=== PATIENT | female | born 1975 | race Caucasian/White ===

== ENCOUNTER 2020-06-27 06:04 | Outpatient (REF) | payer MEDICARE, MEDICAID, SELFPAY ==
[2020-06-27 12:04] LABS: Alanine Aminotransferase 11 U/L (0-31); Alkaline Phosphatase 82 U/L (39-117); Anion Gap 12 (12-20); Aspartate Amino Transferase 12 U/L (5-31); Bilirubin Total 0.4 mg/dL (0.0-1.0); Blood Urea Nitrogen 11 mg/dL (9-16); Calcium 8.9 mg/dL (8.4-10.2); Carbon Dioxide 32 mmol/L (22-29); Chloride 102 mmol/L (96-108); Cholesterol 239 mg/dL; Estimated Glomerular Filt Rate > 60; Glucose Fasting 94 mg/dL (60-99); HDL Cholesterol 46 mg/dL; LDL Cholesterol Calculated 153 mg/dl; Potassium 4.7 mmol/l (3.3-5.1); Sodium 141 mmol/L (135-145); Total Protein 7.3 g/dL (6.5-8.0); Triglycerides 201 mg/dL
== END 2020-06-27 06:05 | disposition home or self-care (01) ==
LOC: HO.HMGCLDS 06:04
PROVIDERS: PCP Internal Medicine; Visit Provider Internal Medicine
DX: E03.9 Hypothyroidism, unspecified (principal); E78.9 Disorder of lipoprotein metabolism, unspecified; E66.01 Morbid (severe) obesity due to excess calories; Z68.42 Body mass index [BMI] 45.0-49.9, adult
CPT/HCPCS: 80053; 80061

== ENCOUNTER 2021-01-03 12:48 | Outpatient (REF) | payer MEDICARE, MEDICAID, SELFPAY ==
--- NOTE | ~2021-01-03 | MM_ITS ---
EXAMINATION: MM SCREENING DIGITAL BREAST TOMOSYNTHESIS, BILATERAL CLINICAL INFORMATION: Screening. Asymptomatic. The lifetime risk of breast cancer based on the Tyrer-Cuzick Model is 9%. COMPARISON: Mammography: 12/15/2018; remote 05/19/2012 (CC views). TECHNIQUE: Digital breast tomosynthesis is performed in both the craniocaudal and mediolateral oblique views along with computer-aided detection (CAD). Synthesized 2D images are generated from the tomosynthesis. FINDINGS: There are scattered areas of fibroglandular density (ACR BI-RADS breast composition Category b). There are no significant masses, abnormal calcifications, or other abnormalities. The axilla and skin contours are unremarkable. No significant changes. MM/MM tomosynthesis screening BI IMPRESSION: No mammographic evidence of malignancy. ASSESSMENT: BI-RADS 1: Negative RECOMMENDATION: Routine annual mammography screening. This patient's information was entered into a reminder system with a target due date for their next mammogram.
== END 2021-01-03 12:49 | disposition home or self-care (01) ==
LOC: HO.MAMMO 12:48
PROVIDERS: Visit Provider Internal Medicine
DX: Z12.31 Encounter for screening mammogram for malignant neoplasm of breast (principal)
CPT/HCPCS: 77063; 77067

== ENCOUNTER 2021-02-15 12:50 | Outpatient (REF) | payer MEDICARE, MEDICAID, SELFPAY ==
--- NOTE | ~2021-02-15 | XR_ITS ---
EXAMINATION: XR LUMBOSACRAL SPINE CLINICAL INFORMATION: M54.5 - Low back pain COMPARISON: None TECHNIQUE: Three views of the lumbosacral spine. FINDINGS: There is normal lumbar segmentation with 5 nonrib-bearing lumbar vertebrae of normal height and normal lumbar lordosis. There is no lumbar vertebral compression, spondylolisthesis, destructive process. There is no focal disc narrowing or endplate sclerosis or erosive change. There are borderline degenerative facet changes lumbosacral junction. The SI joints and visualized sacrum are unremarkable. XR/XR lumbar spine 2-3V IMPRESSION: No vertebral compression, spondylolisthesis, or destructive process.
== END 2021-02-15 12:51 | disposition home or self-care (01) ==
LOC: HO.HMGCX 12:50
PROVIDERS: PCP Internal Medicine; Visit Provider Hospitalist
DX: M54.5 Low back pain (principal)
CPT/HCPCS: 72100

== ENCOUNTER 2021-03-15 09:09 | Outpatient (REF) | payer MEDICARE, MEDICAID, SELFPAY ==
[2021-03-15 11:50] LABS: Alanine Aminotransferase 11 U/L (0-31); Alkaline Phosphatase 77 U/L (39-117); Anion Gap 14 (12-20); Aspartate Amino Transferase 12 U/L (5-31); Bilirubin Total 0.2 mg/dL (0.0-1.0); Blood Urea Nitrogen 9 mg/dL (9-16); Calcium 9.8 mg/dL (8.4-10.2); Carbon Dioxide 28 mmol/L (22-29); Chloride 102 mmol/L (96-108); Estimated Glomerular Filt Rate > 60; Glucose Random 107 mg/dL (60-115); Potassium 4.3 mmol/L (3.3-5.1); Sodium 140 mmol/L (135-145); Total Protein 7.1 g/dL (6.5-8.0)
[2021-03-15 11:56] LABS: TSH reflex Free T4 3.74 uIU/mL (0.32-4.0)
[2021-03-16 20:25] LABS: LDL Cholesterol Direct 203 mg/dL (<100)
== END 2021-03-15 09:10 | disposition home or self-care (01) ==
LOC: HO.HMGCLDS 09:09
PROVIDERS: PCP Internal Medicine; Visit Provider Internal Medicine
DX: E03.8 Other specified hypothyroidism (principal); E66.01 Morbid (severe) obesity due to excess calories; E78.9 Disorder of lipoprotein metabolism, unspecified; M54.5 Low back pain
CPT/HCPCS: 36415; 80053; 83721; 84443

== ENCOUNTER 2021-05-07 08:00 | Outpatient (RCR) | payer MEDICARE, MEDICAID, SELFPAY ==
--- NOTE | 2021-08-02 08:07 | MHC.PT.DC ---
[facility] [place] Office [place] Office [place] Office [address] Brisa Moseley [address] [phone] F: [phone] F: [phone] F: [phone] F: [phone] Physical Therapy Discharge Report Diagnosis: low back pain Date of Surgery: n/a Date of Evaluation: 03/19/21 Date of Discharge: 05/09/21 Treatments to Date: 6 Cancellations to Date: 0 No Shows to Date: 0 Discharge Status: Achieved Goals Independent with HEP Discharge Summary: 05/07/21: pt with no s/s and I with HEP. progressed on all goals including I with HEP, lumbar rotation 75% and pain free, 90/90 < 10 b/l, Oswestry 8%, and max pain 1/10 with ADLs. She is appropriate to d/c to HEP at this time. Electronically signed by: Chivo Steiner, PT Please sign and return to therapist. Thank you for your referral.
== END 2021-05-09 08:00 | disposition home or self-care (01) ==
LOC: HO.PTCHIC 08:00
PROVIDERS: PCP Internal Medicine; Visit Provider Hospitalist
DX: M54.50 Low back pain, unspecified (principal)
CPT/HCPCS: 97110; 97161

== ENCOUNTER 2021-05-31 06:01 | Outpatient (REF) | payer MEDICARE, MEDICAID, SELFPAY ==
[2021-05-31 11:28] LABS: MANUAL DIFF FLAG NO
[2021-05-31 11:32] LABS: Basophils Percent Auto 0.5 % (0-2); Eosinophils Absolute Auto 0.3 X10*3/uL (0.0-0.4); Eosinophils Percent Auto 3.9 % (0-4); Hematocrit 37.8 % (37.0-47.0); Hemoglobin 12.1 g/dl (12.0-16.0); Imm Gran Abs Auto 0.02 X10*3/uL (0.00-0.03); Imm Gran Pct Auto 0.2 % (0.0-0.4); Lymphocytes Absolute Auto 2.7 X10*3/uL (1.2-4.9); Lymphocytes Percent Auto 33.1 % (20-40); Mean Corpuscular Hemoglobin 29.4 pg (27.0-33.0); Monocytes Absolute Auto 0.7 X10*3/uL (0.1-1.2); Neutrophils Absolute Auto 4.5 x10*3/uL (2.0-8.3); Neutrophils Percent Auto 54.3 % (45-73); Platelet Count 288 X10*3/uL (160-400); Red Blood Count 4.11 X10*6/uL (4.20-5.50); Red Cell Distribution Width 15.1 % (11.0-16.0); White Blood Count 8.2 X10*3/uL (4.8-10.8)
[2021-05-31 11:40] LABS: Estimated Average Glucose 123 mg/dL; Hemoglobin A1c % 5.9 %
[2021-05-31 12:04] LABS: Alanine Aminotransferase 10 U/L (0-31); Albumin Level 3.6 g/dL (3.5-5.0); Alkaline Phosphatase 69 U/L (39-117); Anion Gap 15 (12-20); Aspartate Amino Transferase 12 U/L (5-31); Bilirubin Direct < 0.2 mg/dL (0.0-0.5); Bilirubin Total 0.3 mg/dL (0.0-1.0); Blood Urea Nitrogen 11 mg/dL (9-16); Calcium 8.9 mg/dL (8.4-10.2); Carbon Dioxide 26 mmol/L (22-29); Chloride 104 mmol/L (96-108); Cholesterol 190 mg/dL; Estimated Glomerular Filt Rate > 60; Glucose Fasting 95 mg/dL (60-99); HDL Cholesterol 41 mg/dL; LDL Cholesterol Calculated 108 mg/dl; Potassium 4.7 mmol/L (3.3-5.1); Sodium 140 mmol/L (135-145); Total Protein 6.9 g/dL (6.5-8.0); Triglycerides 206 mg/dL
[2021-05-31 12:12] LABS: Thyroid Stimulating Hormone 2.57 uIU/mL (0.32-4.0)
[2021-05-31 12:14] LABS: Valproate 64.8 mcg/mL (50.0-100.0)
[2021-05-31 12:27] LABS: TSH reflex Free T4 2.55 uIU/mL (0.32-4.0)
== END 2021-05-31 06:02 | disposition home or self-care (01) ==
LOC: HO.HMGCLDS 06:01
PROVIDERS: PCP Internal Medicine; Visit Provider Nurse Practitioner Psychiatric/Mental Health
DX: E03.8 Other specified hypothyroidism (principal); E66.01 Morbid (severe) obesity due to excess calories; E78.9 Disorder of lipoprotein metabolism, unspecified; F31.5 Bipolar disorder, current episode depressed, severe, with psychotic features; Z79.899 Other long term (current) drug therapy
CPT/HCPCS: 36415; 80053; 80061; 80076; 80164; 82248; 83036; 84443; 85025

== ENCOUNTER 2021-11-26 07:57 | Outpatient (REF) | payer MEDICARE, MEDICAID, SELFPAY ==
[2021-11-26 16:54] LABS: CT PCR NOT DETECTED (Not Detect.); NG PCR NOT DETECTED (Not Detect.)
[2021-11-27 09:31] LABS: BV Int Neg Control Negative (Negative); BV Int Pos Control Positive (Positive)
== END 2021-11-26 07:58 | disposition home or self-care (01) ==
LOC: HO.LAB 07:57
PROVIDERS: PCP Internal Medicine; Visit Provider Advanced Practice Midwife
DX: Z01.411 Encounter for gynecological examination (general) (routine) with abnormal findings (principal); R10.2 Pelvic and perineal pain; N95.1 Menopausal and female climacteric states; Z20.2 Contact with and (suspected) exposure to infections with a predominantly sexual mode of transmission
CPT/HCPCS: 87480; 87491; 87510; 87591; 87660

== ENCOUNTER 2021-11-28 06:06 | Outpatient (REF) | payer MEDICARE, MEDICAID, SELFPAY ==
[2021-11-28 12:08] LABS: Alanine Aminotransferase 14 U/L (0-31); Albumin Level 3.5 g/dL (3.5-5.0); Alkaline Phosphatase 71 U/L (39-117); Anion Gap 10 (12-20); Aspartate Amino Transferase 13 U/L (5-31); Bilirubin Total 0.3 mg/dL (0.0-1.0); Blood Urea Nitrogen 9 mg/dL (9-16); Calcium 9.3 mg/dL (8.4-10.2); Carbon Dioxide 29 mmol/L (22-29); Chloride 105 mmol/L (96-108); Cholesterol 173 mg/dL; Estimated Glomerular Filt Rate > 60; Glucose Fasting 107 mg/dL (60-99); HDL Cholesterol 33 mg/dL; LDL Cholesterol Calculated 105 mg/dl; Potassium 4.1 mmol/L (3.3-5.1); Sodium 140 mmol/L (135-145); Total Protein 6.6 g/dL (6.5-8.0); Triglycerides 179 mg/dL
[2021-11-28 12:19] LABS: TSH reflex Free T4 3.58 uIU/mL (0.32-4.0)
== END 2021-11-28 06:07 | disposition home or self-care (01) ==
LOC: HO.HMGCLDS 06:06
PROVIDERS: Visit Provider Internal Medicine
DX: E66.01 Morbid (severe) obesity due to excess calories (principal); E78.9 Disorder of lipoprotein metabolism, unspecified; E03.8 Other specified hypothyroidism
CPT/HCPCS: 36415; 80053; 80061; 84443

== ENCOUNTER 2021-12-05 12:39 | Outpatient (REF) | payer MEDICARE, MEDICAID, SELFPAY ==
--- NOTE | ~2021-12-05 | US_ITS ---
EXAMINATION: US PELVIS CLINICAL INFORMATION: Pelvic and perineal pain. COMPARISON: None TECHNIQUE: Ultrasound of the pelvis is performed using both transabdominal and transvaginal transducers along with Doppler. Transvaginal imaging is performed due to inadequate visualization transabdominally. FINDINGS: Uterus: The uterus is anteverted, anteflexed and measures 8.5 cm in length, 4.0 cm in AP and 5.6 cm in transverse dimension. The double wall endometrial thickness is 1.36 cm. The uterus is smooth in contour and has normal myometrial echogenicity. There is a hypoechoic lesion in the posterior body of the uterus, appears subserosal measuring 1.3 x 0.90 x 1.7 cm. No additional lesions seen. There are small nabothian cysts seen in the cervix. Adnexa: Both ovaries are visualized. There is normal color flow to the adnexa. There is no ovarian torsion. There is no pelvic ascites or fluid collection. Right ovary measures 4.3 x 2.8 x 3.0 cm and volume 18.9 mL. Focal hyperechoic area seen in right ovary measuring 1.2 x 0.67 x 0.90 cm. There is an anechoic cyst measuring 1.5 x 1.0 x 2.3 cm. There is a partially exophytic cyst measuring 2.4 x 1.4 x 2.2 cm. Left ovary is not visualized. US/US pelvic and transvaginal IMPRESSION: Multiple right ovarian cysts and a hyperechoic lesion likely dermoid or hyperechoic complex cyst. In addition, there are at least 2 simple cysts. Left ovary is not seen. Small nabothian cysts in the cervix. Solitary uterine fibroid in the posterior body of uterus. It appears subserosal.
== END 2021-12-05 12:40 | disposition home or self-care (01) ==
LOC: HO.HMGCX 12:39
PROVIDERS: Visit Provider Advanced Practice Midwife
DX: R10.2 Pelvic and perineal pain (principal)
CPT/HCPCS: 76830; 76856

== ENCOUNTER → 2021-12-23 11:34 | Outpatient (BNVA) | payer MEDICARE, MEDICAID, SELFPAY | PROVIDERS: PCP Internal Medicine; Visit Provider Advanced Practice Midwife | DX: N83.291 Other ovarian cyst, right side (principal); Z71.2 Person consulting for explanation of examination or test findings; N93.9 Abnormal uterine and vaginal bleeding, unspecified; D25.9 Leiomyoma of uterus, unspecified | CPT/HCPCS: Q3014 ==

== ENCOUNTER 2022-01-06 08:07 | Outpatient (REF) | payer MEDICARE, MEDICAID, SELFPAY ==
--- NOTE | ~2022-01-06 | MM_ITS ---
EXAMINATION: MM SCREENING DIGITAL BREAST TOMOSYNTHESIS, BILATERAL CLINICAL INFORMATION: Screening. Asymptomatic. The lifetime risk of breast cancer based on the Tyrer-Cuzick Model is 8%. COMPARISON: Mammography: 01/03/2021, 12/15/2018 TECHNIQUE: Digital breast tomosynthesis is performed in both the craniocaudal and mediolateral oblique views along with computer-aided detection (CAD). Synthesized 2D images are generated from the tomosynthesis. FINDINGS: There are scattered areas of fibroglandular density (ACR BI-RADS breast composition Category b). There are no significant masses, abnormal calcifications, or other abnormalities. Parenchymal pattern is similar to prior studies. The axilla and skin contours are unremarkable. MM/MM tomosynthesis screening BI IMPRESSION: No mammographic evidence of malignancy. ASSESSMENT: BI-RADS 1: Negative RECOMMENDATION: Routine annual mammography screening. This patient's information was entered into a reminder system with a target due date for their next mammogram.
== END 2022-01-06 08:08 | disposition home or self-care (01) ==
LOC: HO.MAMMO 08:07
PROVIDERS: PCP Internal Medicine; Visit Provider Internal Medicine
DX: Z12.31 Encounter for screening mammogram for malignant neoplasm of breast (principal)
CPT/HCPCS: 77063; 77067

== ENCOUNTER 2022-01-29 12:38 | Outpatient (REF) | payer MEDICARE, MEDICAID, SELFPAY ==
--- NOTE | ~2022-01-29 | US_ITS ---
EXAMINATION: US PELVIS CLINICAL INFORMATION: Follow-up right ovarian cyst. LMP December 2021, unsure about exact date. COMPARISON: 12/05/2021. TECHNIQUE: Ultrasound of the pelvis is performed using both transabdominal and transvaginal transducers along with Doppler. Transvaginal imaging is performed due to inadequate visualization transabdominally. FINDINGS: The uterus is anteverted and anteflexed measuring 9 x 4.2 x 4.5 cm. A 1.8 cm anterior fibroid is redemonstrated, not significantly changed. The endometrium measures 0.9 cm in thickness with no discrete focal abnormality. Nabothian cysts overlying the cervix. The ovaries are normal in morphology with preserved flow at the moment of this examination. The right ovary measures 2.4 x 1.8 x 1.6 cm (3.6 mL) and the left ovary measures 2.4 x 1.4 x 2.3 cm (4 mL). There is a simple appearing cyst in the left ovary measuring 1.3 cm, almost certainly benign, for which no imaging follow-up is recommended. A previously described hyperechoic lesion in the right ovary is not seen on today's examination. No free fluid. US/US pelvic and transvaginal IMPRESSION: 1. Stable posterior uterine fibroids. 2. Previously described hyperechoic lesion in the right ovary is not visualized in this examination. 3. No significant abnormality.
== END 2022-01-29 12:39 | disposition home or self-care (01) ==
LOC: HO.HMGCX 12:38
PROVIDERS: Visit Provider Advanced Practice Midwife
DX: N83.299 Other ovarian cyst, unspecified side (principal)
CPT/HCPCS: 76830; 76856

== ENCOUNTER 2022-02-12 12:47 | Outpatient (REF) | payer MEDICARE, MEDICAID, SELFPAY | END 2022-02-12 12:48 | disposition home or self-care (01) | LOC: HO.LAB 12:47 | PROVIDERS: PCP Internal Medicine; Visit Provider Advanced Practice Midwife | DX: N93.9 Abnormal uterine and vaginal bleeding, unspecified (principal); N83.299 Other ovarian cyst, unspecified side; Z71.2 Person consulting for explanation of examination or test findings | CPT/HCPCS: 58100; 88305; 99212 ==

== ENCOUNTER → 2022-03-03 13:12 | Outpatient (BNVA) | payer MEDICARE, MEDICAID, SELFPAY | PROVIDERS: PCP Internal Medicine; Visit Provider Advanced Practice Midwife | DX: N93.9 Abnormal uterine and vaginal bleeding, unspecified (principal); Z71.2 Person consulting for explanation of examination or test findings | CPT/HCPCS: 99212 ==

== ENCOUNTER 2022-04-08 09:58 | Outpatient (REF) | payer MEDICARE, MEDICAID, SELFPAY ==
[2022-04-08 12:08] LABS: Estimated Average Glucose 128 mg/dL; Hemoglobin A1c % 6.1 %
[2022-04-08 12:09] LABS: Alanine Aminotransferase 14 U/L (0-31); Albumin Level 3.9 g/dL (3.5-5.0); Alkaline Phosphatase 77 U/L (39-117); Anion Gap 15 (12-20); Aspartate Amino Transferase 12 U/L (5-31); Bilirubin Total < 0.2 mg/dL (0.0-1.0); Blood Urea Nitrogen 12 mg/dL (9-16); Calcium 9.5 mg/dL (8.4-10.2); Carbon Dioxide 27 mmol/L (22-29); Chloride 104 mmol/L (96-108); Estimated Glomerular Filt Rate > 60; Glucose Random 99 mg/dL (60-115); Potassium 4.9 mmol/L (3.3-5.1); Sodium 141 mmol/L (135-145); Total Protein 7.2 g/dL (6.5-8.0)
[2022-04-08 12:14] LABS: TSH reflex Free T4 1.48 uIU/mL (0.32-4.0)
[2022-04-10 06:05] LABS: LDL Cholesterol Direct 163 mg/dL (<100)
== END 2022-04-08 09:59 | disposition home or self-care (01) ==
LOC: HO.HMGCLDS 09:58
PROVIDERS: PCP Internal Medicine; Visit Provider Internal Medicine
DX: E66.01 Morbid (severe) obesity due to excess calories (principal); E78.9 Disorder of lipoprotein metabolism, unspecified; I10 Essential (primary) hypertension; R73.03 Prediabetes; E03.8 Other specified hypothyroidism
CPT/HCPCS: 36415; 80053; 83036; 83721; 84443

== ENCOUNTER 2022-10-28 06:07 | Outpatient (REF) | payer MEDICARE, MEDICAID, SELFPAY ==
[2022-10-28 11:07] LABS: MANUAL DIFF FLAG NO
[2022-10-28 11:37] LABS: Basophils Percent Auto 0.6 % (0-2); Eosinophils Absolute Auto 0.3 X10*3/uL (0.0-0.4); Eosinophils Percent Auto 3.7 % (0-4); Hematocrit 38.3 % (37.0-47.0); Imm Gran Abs Auto 0.01 X10*3/uL (0.00-0.03); Imm Gran Pct Auto 0.1 % (0.0-0.4); Lymphocytes Absolute Auto 2.8 X10*3/uL (1.2-4.9); Lymphocytes Percent Auto 40.1 % (20-40); Mean Corpuscular HGB Conc 31.3 g/dl (31.0-35.0); Mean Corpuscular Hemoglobin 28.7 pg (27.0-33.0); Mean Corpuscular Volume 91.6 fL (80.0-98.0); Mean Platelet Volume 11.1 fL (9.4-12.3); Monocytes Absolute Auto 0.5 X10*3/uL (0.1-1.2); Monocytes Percent Auto 7.3 % (2-11); Neutrophils Absolute Auto 3.4 x10*3/uL (2.0-8.3); Neutrophils Percent Auto 48.2 % (45-73); Platelet Count 253 X10*3/uL (160-400); Red Blood Count 4.18 X10*6/uL (4.20-5.50); Red Cell Distribution Width 15.1 % (11.0-16.0)
[2022-10-28 11:58] LABS: Alanine Aminotransferase 11 U/L (0-31); Albumin Level 3.7 g/dL (3.5-5.0); Alkaline Phosphatase 71 U/L (39-117); Anion Gap 12 (12-20); Aspartate Amino Transferase 11 U/L (5-31); Bilirubin Total 0.5 mg/dL (0.0-1.0); Blood Urea Nitrogen 10 mg/dL (9-16); Calcium 9.1 mg/dL (8.4-10.2); Carbon Dioxide 29 mmol/L (22-29); Chloride 105 mmol/L (96-108); Cholesterol 209 mg/dL; Estimated Glomerular Filt Rate > 60; Glucose Fasting 102 mg/dL (60-99); HDL Cholesterol 39 mg/dL; LDL Cholesterol Calculated 130 mg/dl; Potassium 4.3 mmol/L (3.3-5.1); Sodium 142 mmol/L (135-145); Total Protein 6.6 g/dL (6.5-8.0); Triglycerides 203 mg/dL
[2022-10-28 12:16] LABS: TSH reflex Free T4 2.22 uIU/mL (0.32-4.0)
[2022-10-28 12:46] LABS: Estimated Average Glucose 126 mg/dL
[2022-10-30 00:09] LABS: Follicle Stimulating Hormone 7.6 mIU/mL; Lutenizing Hormone 7.7 mIU/mL
== END 2022-10-28 06:08 | disposition home or self-care (01) ==
LOC: HO.HMGCLDS 06:07
PROVIDERS: PCP Internal Medicine; Visit Provider Internal Medicine
DX: E03.8 Other specified hypothyroidism (principal); E66.01 Morbid (severe) obesity due to excess calories; F99 Mental disorder, not otherwise specified; I10 Essential (primary) hypertension; N95.1 Menopausal and female climacteric states; R73.03 Prediabetes; E78.9 Disorder of lipoprotein metabolism, unspecified
CPT/HCPCS: 36415; 80053; 80061; 83001; 83002; 83036; 84443; 85025

== ENCOUNTER 2022-12-01 10:05 | Outpatient (REF) | payer MEDICARE, MEDICAID, SELFPAY ==
[2022-12-02 06:33] LABS: CT PCR NOT DETECTED (Not Detect.); NG PCR NOT DETECTED (Not Detect.)
== END 2022-12-01 10:06 | disposition home or self-care (01) ==
LOC: HO.LNP 10:05
PROVIDERS: PCP Internal Medicine; Visit Provider Advanced Practice Midwife
DX: Z01.411 Encounter for gynecological examination (general) (routine) with abnormal findings (principal); Z20.2 Contact with and (suspected) exposure to infections with a predominantly sexual mode of transmission; D25.9 Leiomyoma of uterus, unspecified
CPT/HCPCS: 0353U; 99212; G0101

== ENCOUNTER 2022-12-09 12:38 | Outpatient (REF) | payer MEDICARE, MEDICAID, SELFPAY ==
--- NOTE | ~2022-12-09 | US_ITS ---
EXAMINATION: US PELVIS COMPLETE CLINICAL INFORMATION: Additional Notes/Special Instructions recheck fibroids for stability : COMPARISON: Pelvic ultrasound 01/29/2022 TECHNIQUE: Transabdominal and transvaginal imaging was performed. FINDINGS: The uterus is of normal size and echogenicity measuring 8.5 x 4.6 x 4.9 cm. A regular homogeneous endometrium is identified measuring 1.2 cm. A 2.1 x 1.8 x 2.0 cm subserosal myoma in the posterior body increased in size from prior previously 1.8 x 1.3 x 1.5 cm. Nabothian cysts in the cervix. Both ovaries are of normal size and echogenicity. The right measures 2.3 x 1.1 x 1.7 cm for a volume of 2.1 mL. The left measures 1.9 x 1.7 x 1.2 cm for a volume of 2.0 mL. There is no pelvic free fluid. US/US pelvic and transvaginal IMPRESSION: A 2.1 cm subserosal myoma in the posterior body increased in size from prior.
== END 2022-12-09 12:39 | disposition home or self-care (01) ==
LOC: HO.HMGCX 12:38
PROVIDERS: PCP Internal Medicine; Visit Provider Advanced Practice Midwife
DX: D25.9 Leiomyoma of uterus, unspecified (principal)
CPT/HCPCS: 76830; 76856

== ENCOUNTER 2022-12-17 10:35 | Emergency (ER) | payer MEDICARE, MEDICAID, SELFPAY ==
--- NOTE | ~2022-12-17 | XR_ITS ---
EXAMINATION: XR CHEST CLINICAL INFORMATION: Chest pain COMPARISON: 05/16/2015 TECHNIQUE: 2 views of the chest were obtained. FINDINGS: No significant abnormality is noted involving the heart, lungs, mediastinum, bony thorax or soft tissues. XR/XR chest 2V IMPRESSION: Unremarkable examination.
--- NOTE | 2022-12-17 10:39 | ECG_ITS ---
Test Reason : CP Blood Pressure : / mmHG Vent. Rate : 074 BPM Atrial Rate : 074 BPM P-R Int : 192 ms QRS Dur : 080 ms QT Int : 370 ms P-R-T Axes : 022 014 031 degrees QTc Int : 410 ms Sinus rhythm with occasional Premature ventricular complexes Otherwise normal ECG When compared with ECG of 18-MAY-2015 07:55, Premature ventricular complexes are now Present Nonspecific T wave abnormality no longer evident in Lateral leads Referred By: Generic ED Physician Electronically Signed By:Nahum Jauregui
[2022-12-17 11:55] VITALS: BP 157/70; PULSE 73; RESP 18; TEMP 36.1; O2SAT 99; BMI 50.1
--- NOTE | 2022-12-17 11:58 | ED_ITS ---
HPI - General Adult General Chief complaint: Chest Pain Stated complaint: bad chest pain Time Seen by Provider: 12/17/22 12:54 Source: patient Mode of arrival: ambulatory Limitations: no limitations History of Present Illness HPI narrative: Patient is a 47-year-old female with history of hypothyroidism, pre diabetes, bipolar disorder, hypertension presenting with right anterior chest pain since Thursday which worsened last night as well as nausea and right arm numbness extending to fingers which began at 5:00 a.m. today. She describes her chest pain as a squeezing sensation which is worse with movement. She reports her pain is exacerbated by getting in and out of her vehicle. She denies right arm pain an reports she just has a tingling sensation. Last night she took 81 mg of aspirin without change in symptoms. She denies any dyspnea. Denies any dizziness, lightheadedness, syncope. Denies recent fevers. Denies neck pain. Denies any recent injury, falls or trauma. Denies abdominal pain, vomiting, diarrhea, constipation. Denies urinary symptoms, back or flank pain. Denies increase in a deep inspiration. Denies calf pain. Denies hemoptysis or history of DVT/PE. MD complaint: Right chest pain, right arm tingling Onset (ago): day(s) Location: chest Radiation: extremity Severity: severe Quality: other (Squeezing) Pain Consistency: colicky Relieving factors: rest Exacerbating factors: movement Associated symptoms: nausea/vomiting (Reports nausea, denies vomiting) Treatments prior to arrival: aspirin Related Data Home Medications Medication Instructions Recorded Confirmed divalproex 500 mg tablet,extended 1,500 mg PO BEDTIME 08/08/20 08/06/22 release 24 hr lorazepam 1 mg tablet 1 mg PO BID PRN 08/08/20 08/06/22 aripiprazole 20 mg tablet 20 mg PO BEDTIME 12/05/20 08/06/22 Previous Rx's Medication Instructions Recorded simvastatin 80 mg tablet 80 mg PO DAILY #90 tabs 09/01/22 atenolol 50 mg tablet 50 mg PO DAILY 90 days #90 tabs 09/30/22 levothyroxine 125 mcg tablet 125 mcg PO DAILY 90 days #90 tabs 12/01/22 cyclobenzaprine 5 mg tablet 5 mg PO TID PRN muscle spasm #12 12/17/22 tabs prednisone 20 mg tablet 40 mg PO DAILY #8 tabs 12/17/22 Allergies Allergy/AdvReac Type Severity Reaction Status Date / Time No Known Allergies Allergy Verified 12/01/22 10:12 [No Known Allergies*] Review of Systems Review of Systems: As per HPI. Yes all other systems are reviewed and are negative Constitutional: Constitutional: Reports as per HPI [facility] Past Medical History Medical History BMI 45.0-49.9, adult Hypertension Lipid disorder Other specified hypothyroidism Pre-diabetes Psychiatric illness Thyroid disease Uterine fibroid Surgical History History of section Family History Family History Father Hypertension Mother Diabetes Lung cancer Maternal Grandfather No problems noted. Maternal Grandmother No problems noted. Paternal Grandfather No problems noted. Paternal Grandmother No problems noted. Other Mental health disorder Social History Social History Housing: House Alcohol intake: never Patient Tobacco Use Status: Never used Tobacco e-Cigarette/Vaping Use: Never Used Advance Directives: No Advance Directives Information Provided: Yes service: No Current occupational status: disabled Sexual orientation: Straight/Heterosexual Gender identity: Female Cognitive needs: No Hearing needs: No Vision needs: Yes Physical Exam ED Vital Signs: Vital Signs - 24 hr 12/17/22 11:55 Temperature 97 F Pulse Rate 73 Respiratory Rate 18 Blood Pressure 157/70 H Pulse Oximetry 99 Oxygen Delivery Method Room Air BMI result Body Mass Index 50.1 Vital signs have been reviewed and appear to be correct. Blood pressure elevated. Heart rate normal. Respiratory rate normal. Temperature normal. Oxygen saturation normal. Const General: cooperative and no acute distress Orientation/consciousness: oriented to person, oriented to place, oriented to time and patient oriented x3 Limitations: no limitations HENMT Head: Yes normocephalic and Yes atraumatic Ears: external ears normal General nose exam: Normal external nose present Face and sinus: Yes face symmetric Mouth: oropharynx normal and moist mucous membranes Throat: Yes uvula midline Eyes Pupils: Equal, round and reactive pupils present Neck Neck: Yes normal visual inspection and Yes supple Chest Chest palpation & inspection: normal inspection of the chest and tenderness pectoral muscle on the right diffusely Resp Effort & Inspection: normal respiratory effort and able to speak in complete sentences Auscultation: clear to auscultation bilaterally Cardio Rate: regular rate Rhythm: regular rhythm Heart sounds: S1 normal heart sound present and S2 normal heart sound present GI Palpation (GI): Soft to palpation and nontender Auscultation: normoactive bowel sounds General: Yes no CVA tenderness Back/Spine/Pelvis Back: no CVA tenderness Cervical Spine: normal cervical lordosis, cervical ROM normal, No cervical muscular tenderness, No pain with cervical ROM, No Cervical spine tenderness and No step off deformity Thoracic/Lumbar Spine: thoracic and lumbar spine normal to inspection, No thoracic spinal tenderness and No lumbar spinal tenderness Skin General skin exam: elasticity normal and turgor normal Neuro General: oriented to person, oriented to place, oriented to time, patient oriented x3, moves all extremities, no focal motor deficits and CN's II-XI intact bilaterally Cranial nerves: Yes Equal, round and reactive pupils present Cognition (Neuro): normal cognition Extrem General: Yes full ROM, Yes no pedal edema and Yes no calf tenderness Right upper extremity: normal to inspection, full ROM and normal capillary refill Left upper extremity: normal to inspection, full ROM and normal capillary refill Right lower extremity: normal to inspection, full ROM and normal capillary r efill Left lower extremity: normal to inspection, full ROM and normal capillary refill Psych Mental Status: mental status grossly normal Affect: normal affect Thought process: Normal thought process present Course Course Course Narrative: RME- 47-year-old female presents for evaluation of right-sided chest pain with associated nausea. She also complains of numbness and tingling to the right side of her knee and body. Symptoms started yesterday afternoon. EKG done, labs and chest x-ray ordered. Patient was placed back in the room pending availability Medications Administered Discontinued Medications Generic Name Dose Route Start Last Admin Trade Name Jaidenq PRN Reason Stop Dose Admin Cyclobenzaprine HCl 10 mg 12/17/22 13:18 12/17/22 13:38 Cyclobenzaprine Hcl 10 Mg Tablet PO 12/17/22 13:19 10 mg ONCE ONE Administration Ketorolac Tromethamine 30 mg 12/17/22 13:18 12/17/22 13:38 Ketorolac Tromethamine 30 Mg/Ml Vial IM 12/17/22 13:19 30 mg ONCE ONE Administration Prednisone 40 mg 12/17/22 13:18 12/17/22 13:38 Prednisone 20 Mg Tablet PO 12/17/22 13:19 40 mg ONCE ONE Administration Medical Decision Making Medical Decision Making [facility] Narrative: Patient is a 47-year-old female with history of hypothyroidism, pre diabetes, bipolar disorder, hypertension presenting with right anterior chest pain since Thursday which worsened last night as well as nausea and right arm numbness extending to fingers which began at 5:00 a.m. today. On exam patient is awake, A+Ox3, elevated BP, otherwise VS WNL, right anterior chest tender to palpation, no cervical midline tenderness, step-offs, crepitus, deformities, lungs clear to auscultation throughout, abdomen soft and nontender, 5/5 equal strength all extremities. No evidence of STEMI on EKG. CBC, CMP unremarkable, troponin negative, chest x-ray unremarkable. Will add TSH with reflex free T4, medicate with Toradol, prednisone, Flexeril for suspected cervical radiculopathy. Unlikely ACS, aortic dissection, no evidence of pneumothorax or pneumonia on CXR, low risk Wells, unlikely PE. 14:46 TSH normal. [place] text to Dr. Jauregui to discuss likely discharge home. 14:55 Dr. Jauregui agrees with discharge home. Patient updated on all results, all questions answered, return precautions discussed at bedside. Patient agreeable to plan of care. Differential Diagnosis Differential Diagnoses: The differential diagnosis associated with the presentation includes As above. Admission/Observation Consideration of admission/observation: Escalation of care including admission/observation considered Consult Healthcare Provider Management of the patient was discussed with: Legal Clerk (Dr. Jauregui) Lab Data [facility] Lab Attestation statement: I reviewed the patient's lab results. 12/17/22 12:05 12/17/22 12:05 Labs: Lab Results 12/17/22 12/17/22 12/17/22 Range/Units 12:05 12:05 12:05 WBC 7.9 (4.8-10.8) X10*3/uL RBC 4.31 (4.20-5.50) X10*6/uL Hgb 12.1 (12.0-16.0) g/dl Hct 38.3 (37.0-47.0) % MCV 88.9 (80.0-98.0) fL MCH 28.1 (27.0-33.0) pg MCHC 31.6 (31.0-35.0) g/dl RDW 14.8 (11.0-16.0) % Plt Count 272 (160-400) X10*3/uL MPV 10.1 (9.4-12.3) fL Immature Gran % (Auto) 0.1 (0.0-0.4) % Neut % (Auto) 59.8 (45-73) % Lymph % (Auto) 30.2 (20-40) % [place] % (Auto) 6.6 (2-11) % Eos % (Auto) 2.8 (0-4) % Baso % (Auto) 0.5 (0-2) % Lymph # (Auto) 2.4 (1.2-4.9) X10*3/uL [place] # (Auto) 0.5 (0.1-1.2) X10*3/uL Eos # (Auto) 0.2 (0.0-0.4) X10*3/uL Baso # (Auto) 0.0 (0.0-0.2) X10*3/uL Abs Immat Gran (auto) 0.01 (0.00-0.03) X10*3/uL Absolute Neuts (auto) 4.7 (2.0-8.3) x10*3/uL Absolute Nucleated RBC 0.000 (0.0-0.012) X10*3/uL Nucleated RBC % (auto) 0.0 (0.0-0.2) /100WBC PT 10.5 (10.0-13.1) SEC INR 0.9 (0.9-1.1) APTT 29.0 (26.0-36.4) SEC Sodium 139 (135-145) mmol/L Potassium 4.3 (3.3-5.1) mmol/L Chloride 106 (96-108) mmol/L Carbon Dioxide 26 (22-29) mmol/L Anion Gap 11 L (12-20) BUN 12 (9-16) mg/dL Creatinine 0.73 (0.5-1.4) mg/dL Estim Creat Clear Calc 115.4 Estimated GFR > 60 Random Glucose 102 (60-115) mg/dL Calcium 9.6 (8.4-10.2) mg/dL Total Bilirubin 0.3 (0.0-1.0) mg/dL AST 12 (5-31) U/L ALT 13 (0-31) U/L Alkaline Phosphatase 79 (39-117) U/L Troponin I High Sens (<3.5-17.0) ng/L Total Protein 7.2 (6.5-8.0) g/dL Albumin 3.9 (3.5-5.0) g/dL Lipase 20 (8-78) U/L TSH 3.03 (0.32-4.0) uIU/mL 12/17/22 Range/Units 12:05 WBC (4.8-10.8) X10*3/uL RBC (4.20-5.50) X10*6/uL Hgb (12.0-16.0) g/dl Hct (37.0-47.0) % MCV (80.0-98.0) fL MCH (27.0-33.0) pg MCHC (31.0-35.0) g/dl RDW (11.0-16.0) % Plt Count (160-400) X10*3/uL MPV (9.4-12.3) fL Immature Gran % (Auto) (0.0-0.4) % Neut % (Auto) (45-73) % Lymph % (Auto) (20-40) % Chilton % (Auto) (2-11) % Eos % (Auto) (0-4) % Baso % (Auto) (0-2) % Lymph # (Auto) (1.2-4.9) X10*3/uL [place] # (Auto) (0.1-1.2) X10*3/uL Eos # (Auto) (0.0-0.4) X10*3/uL Baso # (Auto) (0.0-0.2) X10*3/uL Abs Immat Gran (auto) (0.00-0.03) X10*3/uL Absolute Neuts (auto) (2.0-8.3) x10*3/uL Absolute Nucleated RBC (0.0-0.012) X10*3/uL Nucleated RBC % (auto) (0.0-0.2) /100WBC PT (10.0-13.1) SEC INR (0.9-1.1) APTT (26.0-36.4) SEC Sodium (135-145) mmol/L Potassium (3.3-5.1) mmol/L Chloride (96-108) mmol/L Carbon Dioxide (22-29) mmol/L Anion Gap (12-20) BUN (9-16) mg/dL Creatinine (0.5-1.4) mg/dL Estim Creat Clear Calc Estimated GFR Random Glucose (60-115) mg/dL Calcium (8.4-10.2) mg/dL Total Bilirubin (0.0-1.0) mg/dL AST (5-31) U/L ALT (0-31) U/L Alkaline Phosphatase (39-117) U/L Troponin I High Sens < 2.7 (<3.5-17.0) ng/L Total Protein (6.5-8.0) g/dL Albumin (3.5-5.0) g/dL Lipase (8-78) U/L TSH (0.32-4.0) uIU/mL Independent Interpretation I performed an independent interpretation of an: Plain X-Ray Interpretation: I independently reviewed the x-ray and agree with the radiologist's interpretation. Radiology Impression Discussion of test interpretation with radiology: I have reviewed the radiologist's reading. Radiologist Impression: FINDINGS: No significant abnormality is noted involving the heart, lungs, mediastinum, bony thorax or soft tissues. XR/XR chest 2V IMPRESSION: Unremarkable examination. External Record Review External record reviewed: Inpatient record, Office record and Outpatient record Prescription Management I considered prescription management with: Pain Medication Chronic Conditions Patient?s care impacted by: Hypertension Scores Heart Score History: -0- slightly suspicious ECG: -1- non specific repolarization disturbance Age: -1- >45 - <65 Risk factory: -2- 3 or more risk factors or treated atherosclerosis Troponin: -0- < or = normal limit Score: 4 Risk: 16.6% Discharge Plan Discharge Clinical Impression: Right-sided chest wall pain, Cervical radiculopathy Patient Disposition: Home, Self-Care Instructions: Chest Pain (DC), Cervical Radiculopathy (ED), Noncardiac Chest Pain (ED), Chest Wall Pain (ED) Additional Instructions: You were evaluated in the emergency department today for chest pain. 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 Please schedule an appointment for follow-up with your primary care physician as soon as possible. You are being prescribed a short course of a steroid called prednisone as well as Flexeril which is a muscle relaxer for your right arm tingling which is likely related to cervical radiculopathy. Return to the emergency department if you experience worsening or uncontrolled chest pain, shortness of breath, lightheadedness, feeling faint, loss of consciousness, nausea, vomiting, or any other concerning symptoms. Prescriptions: New prednisone 20 mg tablet 40 mg PO DAILY Qty: 8 0RF cyclobenzaprine 5 mg tablet 5 mg PO TID PRN (Reason: muscle spasm) Qty: 12 0RF No Action simvastatin 80 mg tablet 80 mg PO DAILY Qty: 90 0RF atenolol 50 mg tablet 50 mg PO DAILY 90 Days Qty: 90 0RF levothyroxine 125 mcg tablet 125 mcg PO DAILY 90 Days Qty: 90 0RF aripiprazole 20 mg tablet 20 mg PO BEDTIME lorazepam 1 mg tablet 1 mg PO BID PRN divalproex 500 mg tablet extended release 24 hr 1,500 mg PO BEDTIME Referrals: [facility] [place] [Provider Group]
[2022-12-17 12:09] LABS: MANUAL DIFF FLAG NO
[2022-12-17 12:11] LABS: Basophils Percent Auto 0.5 % (0-2); Eosinophils Absolute Auto 0.2 X10*3/uL (0.0-0.4); Eosinophils Percent Auto 2.8 % (0-4); Hematocrit 38.3 % (37.0-47.0); Hemoglobin 12.1 g/dl (12.0-16.0); Imm Gran Abs Auto 0.01 X10*3/uL (0.00-0.03); Imm Gran Pct Auto 0.1 % (0.0-0.4); Lymphocytes Absolute Auto 2.4 X10*3/uL (1.2-4.9); Lymphocytes Percent Auto 30.2 % (20-40); Mean Corpuscular HGB Conc 31.6 g/dl (31.0-35.0); Mean Corpuscular Hemoglobin 28.1 pg (27.0-33.0); Mean Corpuscular Volume 88.9 fL (80.0-98.0); Mean Platelet Volume 10.1 fL (9.4-12.3); Monocytes Absolute Auto 0.5 X10*3/uL (0.1-1.2); Monocytes Percent Auto 6.6 % (2-11); Neutrophils Absolute Auto 4.7 x10*3/uL (2.0-8.3); Neutrophils Percent Auto 59.8 % (45-73); Platelet Count 272 X10*3/uL (160-400); Red Blood Count 4.31 X10*6/uL (4.20-5.50); Red Cell Distribution Width 14.8 % (11.0-16.0); White Blood Count 7.9 X10*3/uL (4.8-10.8)
[2022-12-17 12:19] LABS: INTERNATIONAL NORM RATIO 0.9 (0.9-1.1); Prothrombin Time 10.5 SEC (10.0-13.1)
[2022-12-17 12:26] LABS: Alanine Aminotransferase 13 U/L (0-31); Albumin Level 3.9 g/dL (3.5-5.0); Alkaline Phosphatase 79 U/L (39-117); Anion Gap 11 (12-20); Aspartate Amino Transferase 12 U/L (5-31); Bilirubin Total 0.3 mg/dL (0.0-1.0); Blood Urea Nitrogen 12 mg/dL (9-16); Calcium 9.6 mg/dL (8.4-10.2); Carbon Dioxide 26 mmol/L (22-29); Chloride 106 mmol/L (96-108); Creatinine Clr Calc Pharmacy 115.4; Estimated Glomerular Filt Rate > 60; Glucose Random 102 mg/dL (60-115); Lipase 20 U/L (8-78); Potassium 4.3 mmol/L (3.3-5.1); Sodium 139 mmol/L (135-145); Total Protein 7.2 g/dL (6.5-8.0)
[2022-12-17 12:35] LABS: Troponin-I High Sensitivity < 2.7 ng/L (<3.5-17.0)
[2022-12-17] MEDS: predniSONE 20 MG TABLET 40 MG PO (13:38)
[2022-12-17] MEDS: Cyclobenzaprine HCl 10 MG TABLET PO (13:38)
[2022-12-17] MEDS: Ketorolac Tromethamine 30 MG/ML VIAL IM (13:38)
[2022-12-17 14:31] LABS: TSH reflex Free T4 3.03 uIU/mL (0.32-4.0)
== END 2022-12-17 15:32 | disposition home or self-care (01) ==
PROVIDERS: Physician Assistant; Registered Nurse Emergency; Emergency Provider Internal Medicine; PCP Internal Medicine
DX: R07.89 Other chest pain (principal); M54.12 Radiculopathy, cervical region; I10 Essential (primary) hypertension; E11.9 Type 2 diabetes mellitus without complications; E78.9 Disorder of lipoprotein metabolism, unspecified; Z79.02 Long term (current) use of antithrombotics/antiplatelets; Z79.899 Other long term (current) drug therapy
CPT/HCPCS: 36415; 71046; 80053; 83690; 84443; 84484; 85025; 85610; 85730; 93005; 96372; 99283; 99284; J1885

== ENCOUNTER → 2022-12-23 07:44 | Outpatient (BNVA) | payer MEDICARE, MEDICAID, SELFPAY | PROVIDERS: PCP Internal Medicine; Visit Provider Advanced Practice Midwife | DX: Z71.2 Person consulting for explanation of examination or test findings (principal) | CPT/HCPCS: Q3014 ==

== ENCOUNTER 2022-12-31 11:14 | Outpatient (REF) | payer MEDICARE, MEDICAID, SELFPAY ==
--- NOTE | ~2022-12-31 | XR_ITS ---
EXAMINATION: CERVICAL SPINE 3 VIEWS CLINICAL INFORMATION: Cervical radiculopathy. COMPARISON: None. TECHNIQUE: Frontal, lateral and odontoid views are obtained. FINDINGS: Vertebral body heights and alignment are normal. The disc spaces are well-maintained. There is mild anterior spondylosis of the C4 upper endplate and the C5 upper and lower endplates. A tiny limbus vertebra is incidentally seen anterior to the C6 upper endplate. No acute fracture or spondylolisthesis is seen. The posterior elements are intact. There is no prevertebral soft tissue swelling. The dens and C7-T1 interface are normal. XR/XR cervical spine 2V IMPRESSION: 1. No acute fracture or spondylolisthesis is seen. 2. The cervical disc spaces are well-maintained. 3. There is multi-level mild cervical spondylosis.
== END 2022-12-31 11:15 | disposition home or self-care (01) ==
LOC: HO.HMGCX 11:14
PROVIDERS: PCP Internal Medicine; Visit Provider Internal Medicine
DX: M54.12 Radiculopathy, cervical region (principal)
CPT/HCPCS: 72040

== ENCOUNTER 2023-01-08 08:05 | Outpatient (REF) | payer MEDICARE, MEDICAID, SELFPAY ==
--- NOTE | ~2023-01-08 | MM_ITS ---
EXAMINATION: MM SCREENING DIGITAL BREAST TOMOSYNTHESIS, BILATERAL CLINICAL INFORMATION: Screening. Asymptomatic. The lifetime risk of breast cancer based on the Tyrer-Cuzick Model is 8.1%. COMPARISON: Mammography: This study is compared with the prior mammograms dating back to 2019. TECHNIQUE: Digital breast tomosynthesis is performed in both the craniocaudal and mediolateral oblique views along with computer-aided detection (CAD). Synthesized 2D images are generated from the tomosynthesis. FINDINGS: The breasts are almost entirely fatty (ACR BI-RADS breast composition Category a). There are no significant masses, abnormal calcifications, or other abnormalities. MM/MM tomosynthesis screening BI IMPRESSION: No mammographic evidence of malignancy. ASSESSMENT: BI-RADS BI-RADS 1 - Negative RECOMMENDATION: Routine annual mammography screening. 1 year F/U This patient's information was entered into a reminder system with a target due date for their next mammogram.
== END 2023-01-08 08:06 | disposition home or self-care (01) ==
LOC: HO.MAMMO 08:05
PROVIDERS: PCP Internal Medicine; Visit Provider Internal Medicine
DX: Z12.31 Encounter for screening mammogram for malignant neoplasm of breast (principal)
CPT/HCPCS: 77063; 77067

== ENCOUNTER → 2023-01-08 08:30 | Outpatient (BNV) | payer MEDICARE, MEDICAID, SELFPAY | PROVIDERS: PCP Internal Medicine; Visit Provider Radiology Diagnostic Radiology | DX: Z12.31 Encounter for screening mammogram for malignant neoplasm of breast (principal) | CPT/HCPCS: 77063; 77067 ==

== ENCOUNTER 2023-01-20 08:03 | Outpatient (AMB) | payer MEDICARE, MEDICAID, SELFPAY ==
--- NOTE | 2023-01-20 08:03 | MHC.OFFWIV ---
Intake Vital Signs 01/20/23 08:06 BP 132/80 Blood Pressure Location Lt brachial Position Sitting Pulse 81 Pulse Source Pulse Oximeter Temp 98.5 F Temp Source Oral Pulse Oximetry (%) 98 Oxygen Delivery Method Room Air Intake Visit Reasons: EP Rash between fingers RT hand Intake Note: Pt is here for a rash in between her fingers on Lt hand States it started 2 wks ago Patient Tobacco Use Status: Never used Tobacco Allergies No Known Allergies [No Known Allergies*] Allergy (Verified 01/20/23 08:15) Medication List - Last Reconciled 01/20/23 by Waqar Angeles MD aripiprazole 20 mg PO BEDTIME atenolol 50 mg PO DAILY 90 days divalproex ER 1,500 mg PO BEDTIME levothyroxine 125 mcg PO DAILY 90 days lorazepam 1 mg PO BID PRN simvastatin 80 mg PO DAILY HPI EP Rash between fingers RT hand HPI Details 47-year-old female presents to the office for a sick visit. Patient is reporting a rash between the fingers of the right hand. Symptoms started a week ago. Predominant symptom is itching. [facility], [facility] Medical History BMI 45.0-49.9, adult Hypertension Lipid disorder Other specified hypothyroidism Pre-diabetes Psychiatric illness Thyroid disease Uterine fibroid Surgical History History of section Family History Father Hypertension Mother Diabetes Lung cancer Maternal Grandfather No problems noted. Maternal Grandmother No problems noted. Paternal Grandfather No problems noted. Paternal Grandmother No problems noted. Other Mental health disorder Social History Housing: House Alcohol intake: never Patient Tobacco Use Status: Never used Tobacco e-Cigarette/Vaping Use: Never Used service: No Current occupational status: disabled Sexual orientation: Straight/Heterosexual Gender identity: Female Cognitive needs: No Hearing needs: No Vision needs: Yes Physical Exam Vital Signs: Last Vital Signs Temp 98.5 F 01/20/23 08:06 Pulse 81 01/20/23 08:06 BP 132/80 07/11/23 08:06 Pulse Ox 98 01/20/23 08:06 Oxygen Delivery Method Room Air 01/20/23 08:06 Extrem Other: Right hand: Between 3rd and 4th digits: Erythematous area, well-circumscribed with heaped margins. Lesion is 2 centimetres in size. Assessment & Plan Assessment & Plan (1) Tinea corporis: Code(s): B35.4 - Tinea corporis Plan: Ketoconazole ointment to be applied twice a day. Coding Level of Care Code Est Pt Level 3 (05297) Diagnoses Tinea corporis B35.4
[2023-01-20 08:06] VITALS: BP 132/80; PULSE 81; TEMP 36.9; O2SAT 98
== END 2023-01-20 08:23 | disposition home or self-care (01) ==
PROVIDERS: PCP Internal Medicine; Visit Provider Internal Medicine
DX: B35.4 Tinea corporis (principal)
CPT/HCPCS: 99213

== ENCOUNTER 2023-02-02 13:10 | Outpatient (AMB) | payer MEDICARE, MEDICAID, SELFPAY ==
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
[2023-02-02 14:33] VITALS: BP 112/70; PULSE 72; TEMP 35.7; O2SAT 98
== END 2023-02-02 15:13 | disposition home or self-care (01) ==
PROVIDERS: PCP Internal Medicine; Visit Provider Internal Medicine
DX: T21.12XA Burn of first degree of abdominal wall, initial encounter (principal)
CPT/HCPCS: 99213

== ENCOUNTER 2023-02-18 08:13 | Outpatient (REF) | payer MEDICARE, MEDICAID, SELFPAY ==
--- NOTE | 2023-02-18 08:16 | EMG_ITS ---
Please see scanned EMG / Nerve Conduction Report. MTDD
== END 2023-02-18 08:14 | disposition home or self-care (01) ==
LOC: HO.NEURO 08:13
PROVIDERS: PCP Internal Medicine; Visit Provider Internal Medicine
DX: M54.12 Radiculopathy, cervical region (principal); R20.2 Paresthesia of skin
CPT/HCPCS: 95860; 95885; 95907; 95910

== ENCOUNTER 2023-04-02 19:15 | Emergency (ER) | payer MEDICARE, MEDICAID, SELFPAY ==
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
[2023-04-02 20:00] VITALS: BP 161/81; PULSE 82; RESP 14; TEMP 37.1; O2SAT 97; BMI 49.1
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
== END 2023-04-03 00:06 | disposition left against medical advice (07) ==
LOC: HO.ED 04-03 00:01
PROVIDERS: Emergency Provider Emergency Medicine; PCP Internal Medicine
DX: Z04.1 Encounter for examination and observation following transport accident (principal); M54.50 Low back pain, unspecified
CPT/HCPCS: 72100; 99281; 99283

== ENCOUNTER 2023-04-13 06:02 | Outpatient (REF) | payer MEDICARE, MEDICAID, SELFPAY ==
[2023-04-13 11:18] LABS: MANUAL DIFF FLAG NO
[2023-04-13 11:50] LABS: Basophils Percent Auto 0.5 % (0-2); Eosinophils Absolute Auto 0.2 X10*3/uL (0.0-0.4); Eosinophils Percent Auto 3.4 % (0-4); Hematocrit 38.2 % (37.0-47.0); Hemoglobin 11.7 g/dl (12.0-16.0); Imm Gran Abs Auto 0.02 X10*3/uL (0.00-0.03); Imm Gran Pct Auto 0.3 % (0.0-0.4); Lymphocytes Absolute Auto 2.5 X10*3/uL (1.2-4.9); Lymphocytes Percent Auto 38.9 % (20-40); Mean Corpuscular HGB Conc 30.6 g/dl (31.0-35.0); Mean Corpuscular Hemoglobin 27.9 pg (27.0-33.0); Mean Corpuscular Volume 91.2 fL (80.0-98.0); Monocytes Absolute Auto 0.6 X10*3/uL (0.1-1.2); Monocytes Percent Auto 8.7 % (2-11); Neutrophils Absolute Auto 3.1 x10*3/uL (2.0-8.3); Neutrophils Percent Auto 48.2 % (45-73); Platelet Count 324 X10*3/uL (160-400); Red Blood Count 4.19 X10*6/uL (4.20-5.50); Red Cell Distribution Width 15.8 % (11.0-16.0); White Blood Count 6.4 X10*3/uL (4.8-10.8)
[2023-04-13 12:16] LABS: Alanine Aminotransferase 10 U/L (0-31); Albumin Level 3.7 g/dL (3.5-5.0); Alkaline Phosphatase 75 U/L (39-117); Anion Gap 14 (12-20); Aspartate Amino Transferase 13 U/L (5-31); Bilirubin Total 0.3 mg/dL (0.0-1.0); Blood Urea Nitrogen 11 mg/dL (9-16); Calcium 9.3 mg/dL (8.4-10.2); Carbon Dioxide 27 mmol/L (22-29); Chloride 104 mmol/L (96-108); Cholesterol 211 mg/dL (<200); Estimated Glomerular Filt Rate > 60; Glucose Fasting 116 mg/dL (60-99); Glucose Random 116 mg/dL (60-115); HDL Cholesterol 44 mg/dL (>40); LDL Cholesterol Calculated 121 mg/dL (<100); Potassium 4.1 mmol/L (3.3-5.1); Sodium 141 mmol/L (135-145); Total Protein 7.3 g/dL (6.5-8.0); Triglycerides 233 mg/dL (<150)
[2023-04-13 12:40] LABS: Thyroid Stimulating Hormone 3.48 uIU/mL (0.32-4.0); Vitamin D 25-OH Total 24.1 ng/mL (>30)
[2023-04-13 12:55] LABS: Valproate 40.9 mcg/mL (50.0-100.0)
== END 2023-04-13 06:03 | disposition home or self-care (01) ==
LOC: HO.HMGCLDS 06:02
PROVIDERS: PCP Internal Medicine; Visit Provider Nurse Practitioner Psychiatric/Mental Health
DX: F31.9 Bipolar disorder, unspecified (principal); Z79.899 Other long term (current) drug therapy
CPT/HCPCS: 36415; 80053; 80061; 80164; 82306; 84443; 85025

== ENCOUNTER 2023-05-06 09:31 | Outpatient (AMB) | payer MEDICARE, MEDICAID, SELFPAY ==
--- NOTE | 2023-05-06 09:39 | A.OFFPC_ITS ---
Vital Signs 05/06/23 09:40 Height 5 ft 1 in Weight 258 lb BMI 48.7 BP 124/72 Blood Pressure Location Lt brachial Position Sitting Pulse 70 Pulse Source Pulse Oximeter Pulse Oximetry (%) 98 Oxygen Delivery Method Room Air Intake Visit Reasons: 4m follow up Allergies No Known Allergies [No Known Allergies*] Allergy (Verified 02/02/23 14:33) Medication List - Last Reconciled 05/06/23 by Skye Medellin MD aripiprazole 20 mg PO BEDTIME atenolol 50 mg PO DAILY 90 days divalproex ER 1,500 mg PO BEDTIME ketoconazole 2% 1 appl topical DAILY levothyroxine 125 mcg PO DAILY 90 days lorazepam 1 mg PO BID PRN simvastatin 80 mg PO DAILY Tobacco use date assessed: 05/06/23 HPI 4m follow up HPI Details Patient is 47-year-old female came in today for her regular follow-up appointment.? Labs done recently reviewed with the patient Fasting sugar is 116 patient is prediabetic We talked about diabetic diet today I did offer her appointment with the portrait studio photographer which she has declined at this point Blood Pressure is stable patient is on atenolol 50 mg daily no side effects.? Continue levothyroxine 125 mcg for hypothyroidism.? Lipid disorder:? Continue simvastatin 80 mg daily, patient is tolerating medication no side effects BMI is elevated above 40 patient is morbidly obese trying to lose weight She is also dealing with a psychiatric illness through Psychiatry and is taking 3 medications for that With history of major depression, stable at this time Patient will return in August for follow-up, labs are needed before visit COUNTS INCLUDE 234 BEDS AT THE [facility] Medical History Psychiatric illness Uterine fibroid Pre-diabetes BMI 45.0-49.9, adult Thyroid disease Hypertension Lipid disorder Other specified hypothyroidism Surgical History History of section Family History Father Hypertension Mother Diabetes Lung cancer Maternal Grandfather No problems noted. Maternal Grandmother No problems noted. Paternal Grandfather No problems noted. Paternal Grandmother No problems noted. Other Mental health disorder Social History Housing: House Alcohol intake: never Patient Tobacco Use Status: Never used Tobacco e-Cigarette/Vaping Use: Never Used service: No Current occupational status: disabled Sexual orientation: Straight/Heterosexual Gender identity: Female Cognitive needs: No Hearing needs: No Vision needs: Yes Questionnaire PHQ-9 Over the last 2 weeks, how often have you been bothered by any of the following problems? 1. Little interest or pleasure in doing things: several days 2. Feeling down, depressed, or hopeless: several days 3. Trouble falling or staying asleep, or sleeping too much: several days 4. Feeling tired or having little energy: several days 5. Poor appetite or overeating: not at all 6. Feeling bad about yourself - or that you are a failure or have let yourself or your family down: not at all 7. Trouble concentrating on things, such as reading the newspaper or watching television: not at all 8. Moving or speaking so slowly that other people could have noticed. Or the opposite - being so fidgety or restless that you have been moving around a lot more than usual: not at all 9. Thoughts that you would be better off or of hurting yourself in some way: not at all Total score: 4 Depression Screening Interpretation: Negative Depression Screening Done: Yes 30192 - PHQ-9 Billing: Yes Source: Developed by Drs. Rahul Tiwari, Miky Christianson and colleagues, with an educational hilaria from [employer]. Thrive Questionnaire Date Thrive assessed: 08/06/22 CAITLIN-7 AMB Questionnaire CAITLIN-7 Date CAITLIN - 7 assessed: 08/06/22 Source: Developed by Drs. Rahul Tiwari, Miky Christianson and colleagues, with an educational hilaria from [employer]. Review of Systems Const Denies chills and Denies fever(s) ENT Denies epistaxis and Denies nasal discharge Card Denies chest pain Resp Denies chest congestion, Denies cough and Denies hemoptysis GI Denies diarrhea and Denies nausea Skin/Breast Denies rash Neuro Reports no additional complaints Psych Reports no additional complaints Endo Reports no additional complaints Physical exam (Primary Care) Vital Signs: Last Vital Signs Pulse 70 05/06/23 09:40 BP 124/72 05/06/23 09:40 Pulse Ox 98 05/06/23 09:40 Oxygen Delivery Method Room Air 05/06/23 09:40 BMI result Body Mass Index 48.7 Tobacco/Smoking Status: Tobacco use Status Tobacco use date assessed 05/06/23 05/06/23 09:42 Patient Tobacco Use Status Never used Tobacco 05/06/23 09:42 e-Cigarette/Vaping Use Never Used 05/06/23 09:42 Depression Screening Interpretation: Negative Thrive Assessment: Date of Thrive Assessment Date Thrive assessed 08/06/22 05/06/23 09:42 Const General: cooperative, comfortable and no acute distress Orientation/consciousness: patient oriented x3 HENMT Head: Yes normocephalic Eyes General: appearance normal, both eyes and all related structures Neck Neck: Yes supple Resp Effort & Inspection: normal respiratory effort, no cough and no stridor Cardio Rhythm: regular rhythm Heart sounds: S1 normal heart sound present and S2 normal heart sound present Skin General skin exam: turgor normal Neuro General: patient oriented x3, tone normal and moves all extremities Extrem Right lower extremity: no edema Left lower extremity: no edema Office Procedures Flu Questionnaire Does the patient have a severe egg allergy?: No Does the patient have severe life threatening allergies?: No Does the patient have a fever or illness today?: No Has the patient ever had Guillain-Bulan Syndrome?: No Has the patient ever had any past reaction to a flu shot?: No Immunizations flu vacc [id number] 6mos up(PF) 60 mcg(15 mcgx4)/0.5 mL IM syringe Performing Provider: Skye Medellin MD Performing Location: [facility] Adult [facility] Administered by: Ciara Bai CMA on 05/06/23 10:01 Dose Route Admin Location Dispensed Lot Number Expiration Date NDC Manager Field Services 0.5 mL IM Right Deltoid 0.5 mL [id number] 01/10/24 03114-656-68 [employer] VIS Given Date VIS Provided VIS Publication Date 05/06/23 Single Vaccine 21 Eligibility Eligibility Date Funding Source Not VFC Eligible 05/06/23 Private Assessment and Plan Assessment & Plan (1) Hypertension, essential: Code(s): I10 - Essential (primary) hypertension (2) Major depressive disorder, severe: Code(s): F32.2 - Major depressive disorder, single episode, severe without psychotic features (3) Lipid disorder: Code(s): E78.9 - Disorder of lipoprotein metabolism, unspecified (4) Other specified hypothyroidism: Code(s): E03.8 - Other specified hypothyroidism (5) Morbid obesity: Code(s): E66.01 - Morbid (severe) obesity due to excess calories (6) Pre-diabetes: Code(s): R73.03 - Prediabetes Plan Patient is 47-year-old female came in today for her regular follow-up appointment.? Labs done recently reviewed with the patient Fasting sugar is 116 patient is prediabetic We talked about diabetic diet today I did offer her appointment with the portrait studio photographer which she has declined at this point Blood Pressure is stable patient is on atenolol 50 mg daily no side effects.? Continue levothyroxine 125 mcg for hypothyroidism.? Lipid disorder:? Continue simvastatin 80 mg daily, patient is tolerating medication no side effects BMI is elevated above 40 patient is morbidly obese trying to lose weight She is also dealing with a psychiatric illness through Psychiatry and is taking 3 medications for that With history of major depression, stable at this time Patient will return in August for follow-up, labs are needed before visit Orders: Orders Hemoglobin A1c Today E66.01 - Morbid (severe) obesity due to excess calories, F32.2 - Major depressive disorder, single episode, severe without psychotic features, I10 - Essential (primary) hypertension, R73.03 - Prediabetes Lipid Panel Today E66.01 - Morbid (severe) obesity due to excess calories, F32.2 - Major depressive disorder, single episode, severe without psychotic features, I10 - Essential (primary) hypertension, R73.03 - Prediabetes Comprehensive [place]. Panel Fast Today E66.01 - Morbid (severe) obesity due to excess calories, F32.2 - Major depressive disorder, single episode, severe without psychotic features, I10 - Essential (primary) hypertension, R73.03 - Prediabetes Complete Blood Count Auto Diff Today E66.01 - Morbid (severe) obesity due to excess calories, F32.2 - Major depressive disorder, single episode, severe without psychotic features, I10 - Essential (primary) hypertension, R73.03 - Prediabetes Influenza [id number] Immunization Today Z23 - Encounter for immunization Coding Level of Care Code Est Pt Level 4 (56891) Diagnoses Hypertension, essential I10 Major depressive disorder, severe F32.2 Lipid disorder E78.9 Other specified hypothyroidism E03.8 Morbid obesity E66.01 Pre-diabetes R73.03
[2023-05-06 09:40] VITALS: BP 124/72; PULSE 70; O2SAT 98; BMI 48.7
== END 2023-05-06 14:37 | disposition home or self-care (01) ==
PROVIDERS: PCP Internal Medicine; Visit Provider Internal Medicine
DX: I10 Essential (primary) hypertension (principal); F32.2 Major depressive disorder, single episode, severe without psychotic features; E66.01 Morbid (severe) obesity due to excess calories; Z68.42 Body mass index [BMI] 45.0-49.9, adult; Z23 Encounter for immunization; E78.9 Disorder of lipoprotein metabolism, unspecified; R73.03 Prediabetes; E03.8 Other specified hypothyroidism
CPT/HCPCS: 90471; 90686; 99214

== ENCOUNTER 2023-09-02 09:50 | Outpatient (AMB) | payer MEDICARE, MEDICAID, SELFPAY ==
[2023-09-02 09:55] VITALS: BP 124/70; PULSE 70; O2SAT 98; BMI 49.0
--- NOTE | 2023-09-02 09:55 | A.OFFPC_ITS ---
Vital Signs 09/02/23 09:55 Height 5 ft 1 in Weight 259 lb 6 oz BMI 49.0 BP 124/70 Blood Pressure Location Lt brachial Position Sitting Pulse 70 Pulse Source Pulse Oximeter Pulse Oximetry (%) 98 Oxygen Delivery Method Room Air Intake Visit Reasons: 8m follow up Allergies No Known Allergies [No Known Allergies*] Allergy (Verified 09/02/23 09:56) Medication List - Last Reconciled 09/02/23 by Skye Medellin MD aripiprazole 20 mg PO BEDTIME atenolol 50 mg PO DAILY 90 days divalproex ER 1,500 mg PO BEDTIME levothyroxine 125 mcg PO DAILY 90 days lorazepam 1 mg PO BID PRN simvastatin 80 mg PO DAILY Tobacco use date assessed: 09/02/23 Dental Screening Dental Screen Date: 09/02/23 Did you have a dental visit in the last 12 months?: Yes Did you have a dental problem in the last 6 months where you did not have access to dental care?: No Was dental information given to patient?: Patient has dentist HPI 8m follow up HPI Details Patient is 48-year-old female came in today for her regular follow-up appointment.? Labs repeated before her visit in December. She offer no new complaints today All medications refill sent Blood Pressure is stable patient is on atenolol 50 mg daily no side effects.? Continue levothyroxine 125 mcg for hypothyroidism.? Lipid disorder:? Continue simvastatin 80 mg daily, patient is tolerating medication no side effects BMI is elevated above 40 patient is morbidly obese trying to lose weight She is also dealing with a psychiatric illness through Psychiatry and is taking 3 medications for that With history of major depression, stable at this time Patient has appointment in December for Medicare wellness visit COUNTS INCLUDE 234 BEDS AT THE [facility] Medical History Psychiatric illness Uterine fibroid Pre-diabetes BMI 45.0-49.9, adult Thyroid disease Hypertension Lipid disorder Other specified hypothyroidism Surgical History History of section Family History Father Hypertension Mother Diabetes Lung cancer Maternal Grandfather No problems noted. Maternal Grandmother No problems noted. Paternal Grandfather No problems noted. Paternal Grandmother No problems noted. Other Mental health disorder Social History Housing: House Alcohol intake: never Patient Tobacco Use Status: Never used Tobacco e-Cigarette/Vaping Use: Never Used service: No Current occupational status: disabled Sexual orientation: Straight/Heterosexual Gender identity: Female Cognitive needs: No Hearing needs: No Vision needs: Yes Questionnaire PHQ-9 Over the last 2 weeks, how often have you been bothered by any of the following problems? 1. Little interest or pleasure in doing things: not at all 2. Feeling down, depressed, or hopeless: not at all 3. Trouble falling or staying asleep, or sleeping too much: not at all 4. Feeling tired or having little energy: not at all 5. Poor appetite or overeating: not at all 6. Feeling bad about yourself - or that you are a failure or have let yourself or your family down: not at all 7. Trouble concentrating on things, such as reading the newspaper or watching television: not at all 8. Moving or speaking so slowly that other people could have noticed. Or the opposite - being so fidgety or restless that you have been moving around a lot more than usual: not at all 9. Thoughts that you would be better off or of hurting yourself in some way: not at all Total score: 0 Depression Screening Interpretation: Negative Depression Screening Done: Yes 63777 - PHQ-9 Billing: Yes Source: Developed by Drs. Rahul Tiwari, Oksana Bucio, Miky Winn and colleagues, with an educational hilaria from [employer]. Thrive Questionnaire Date Thrive assessed: 09/02/23 I am a: Patient What is your living situation today?: I have a steady place to live Within the past 12 months, did the food you bought not last and you didn't have the money to get more?: Never true Within the past 12 months, did you worry whether your food would run out before you got money to buy more?: Never true Do you have trouble paying for medicines?: No Do you have trouble getting transportation to medical appointments?: No Do you have trouble paying your heating and electricity bill?: No Do you have trouble taking care of your child, family member or friend?: No Do you have trouble with day-to-day activities such as bathing, preparing meals, shopping, managing finances, etc.?: No Are you currently unemployed and looking for a job?: No Are you interested in more education?: No Please select the resources that you would like help with: None Currently or been in a relationship where the following occur: no concerns reported THRIVE Score: 0 CAITLIN-7 AMB Questionnaire CAITLIN-7 Date CAITLIN - 7 assessed: 09/02/23 Feeling nervous, anxious, or on edge: 1 = Several days Not being able to stop or control worryin = Not at all Worrying too much about different things: 0 = Not at all Trouble relaxin = Several days Being so restless that it is hard to sit still: 0 = Not at all Becoming easily annoyed or irritable: 0 = Not at all Feeling afraid as if something awful might happen: 0 = Not at all Total CAITLIN-7 score (0-4 normal; 5-9 mild; 10-14 moderate; 15-21 severe): 2 Source: Developed by Drs. Rahul Tiwari, Oksana Bucio, Miky Winn and colleagues, with an educational hilaria from [employer]. CAITLIN-7 Assessment Billing CAITLIN-7 Assessment Tool: CAITLIN-7 Assessment 61068 Review of Systems Const Denies chills and Denies fever(s) ENT Denies epistaxis and Denies nasal discharge Card Denies chest pain Resp Denies chest congestion, Denies cough and Denies hemoptysis GI Denies diarrhea and Denies nausea Skin/Breast Denies rash Neuro Reports no additional complaints Psych Reports no additional complaints Endo Reports no additional complaints Physical exam (Primary Care) Vital Signs: Last Vital Signs Pulse 70 09/02/23 09:55 BP 124/70 09/02/23 09:55 Pulse Ox 98 09/02/23 09:55 Oxygen Delivery Method Room Air 09/02/23 09:55 BMI result Body Mass Index 49.0 Tobacco/Smoking Status: Tobacco use Status Tobacco use date assessed 09/02/23 09/02/23 09:56 Patient Tobacco Use Status Never used Tobacco 09/02/23 09:56 e-Cigarette/Vaping Use Never Used 09/02/23 09:56 PHQ-9: PHQ-9 Score PHQ-9: Total score 0 09/02/23 10:33 Depression Screening Interpretation: Negative Thrive Assessment: Date of Thrive Assessment Date Thrive assessed 09/02/23 09/02/23 10:33 Currently or been in a relationship where the following occur: no concerns reported Const General: cooperative, comfortable and no acute distress Orientation/consciousness: patient oriented x3 HENMT Head: Yes normocephalic Eyes General: appearance normal, both eyes and all related structures Neck Neck: Yes supple Resp Effort & Inspection: normal respiratory effort, no cough and no stridor Cardio Rhythm: regular rhythm Heart sounds: S1 normal heart sound present and S2 normal heart sound present Skin General skin exam: turgor normal Neuro General: patient oriented x3, tone normal and moves all extremities Extrem Right lower extremity: no edema Left lower extremity: no edema Office Procedures Flu Questionnaire Does the patient have a severe egg allergy?: No Does the patient have severe life threatening allergies?: No Does the patient have a fever or illness today?: No Has the patient ever had Guillain-[place] Syndrome?: No Has the patient ever had any past reaction to a flu shot?: No Immunizations flu vacc [id number] 6mos up(PF) 60 mcg(15 mcgx4)/0.5 mL IM syringe Performing Provider: Skye Medellin MD Performing Location: [facility] Administered by: YUNG Boo on 09/02/23 10:04 Dose Route Admin Location Dispensed Lot Number Expiration Date NDC [place] 0.5 mL IM Right Deltoid 0.5 mL [id number] 01/10/24 [id number] [employer]app VIS Given Date VIS Provided VIS Publication Date 09/02/23 Single Vaccine 21 Eligibility Eligibility Date Funding Source Not VFC Eligible 09/02/23 Private Assessment and Plan Assessment & Plan (1) Hypertension, essential: Code(s): I10 - Essential (primary) hypertension (2) Morbid obesity: Code(s): E66.01 - Morbid (severe) obesity due to excess calories (3) Pre-diabetes: Code(s): R73.03 - Prediabetes (4) Lipid disorder: Code(s): E78.9 - Disorder of lipoprotein metabolism, unspecified (5) Other specified hypothyroidism: Code(s): E03.8 - Other specified hypothyroidism (6) Major depressive disorder, severe: Code(s): F32.2 - Major depressive disorder, single episode, severe without psychotic features Plan Patient is 48-year-old female came in today for her regular follow-up appointment.? Labs repeated before her visit in December. She offer no new complaints today All medications refill sent Blood Pressure is stable patient is on atenolol 50 mg daily no side effects.? Continue levothyroxine 125 mcg for hypothyroidism.? Lipid disorder:? Continue simvastatin 80 mg daily, patient is tolerating medication no side effects BMI is elevated above 40 patient is morbidly obese trying to lose weight She is also dealing with a psychiatric illness through Psychiatry and is taking 3 medications for that With history of major depression, stable at this time Patient has appointment in December for Medicare wellness visit Orders: Orders Hemoglobin A1c 3 Months E03.8 - Other specified hypothyroidism, E66.01 - Morbid (severe) obesity due to excess calories, E78.9 - Disorder of lipoprotein metabolism, unspecified, F32.2 - Major depressive disorder, single episode, severe without psychotic features, I10 - Essential (primary) hypertension, R73.03 - Prediabetes Comprehensive [place]. Panel Fast 3 Months E03.8 - Other specified hypothyroidism, E66.01 - Morbid (severe) obesity due to excess calories, E78.9 - Disorder of lipoprotein metabolism, unspecified, F32.2 - Major depressive disorder, single episode, severe without psychotic features, I10 - Essential (primary) hypertension, R73.03 - Prediabetes Lipid Panel 3 Months E03.8 - Other specified hypothyroidism, E66.01 - Morbid (severe) obesity due to excess calories, E78.9 - Disorder of lipoprotein meta bolism, unspecified, F32.2 - Major depressive disorder, single episode, severe without psychotic features, I10 - Essential (primary) hypertension, R73.03 - Prediabetes TSH reflex Free T4 3 Months E03.8 - Other specified hypothyroidism, E66.01 - Morbid (severe) obesity due to excess calories, E78.9 - Disorder of lipoprotein metabolism, unspecified, F32.2 - Major depressive disorder, single episode, severe without psychotic features, I10 - Essential (primary) hypertension, R73.03 - Prediabetes Influenza [id number] Immunization Today Z23 - Encounter for immunization Complete Blood Count Auto Diff 3 Months E03.8 - Other specified hypothyroidism, E66.01 - Morbid (severe) obesity due to excess calories, E78.9 - Disorder of lipoprotein metabolism, unspecified, F32.2 - Major depressive disorder, single episode, severe without psychotic features, I10 - Essential (primary) hypertension, R73.03 - Prediabetes Medications: Refilled simvastatin 80 mg PO DAILY 90 tabs 1RF E78.9 - Disorder of lipoprotein metabolism, unspecified atenolol 50 mg PO DAILY 90 tabs 1RF 90 days levothyroxine 125 mcg PO DAILY 90 tabs 1RF 90 days E03.8 - Other specified hypothyroidism Coding Level of Care Code Est Pt Level 4 (92516) Diagnoses Hypertension, essential I10 Morbid obesity E66.01 Pre-diabetes R73.03 Lipid disorder E78.9 Other specified hypothyroidism E03.8 Major depressive disorder, severe F32.2 Additional Codes CAITLIN-7 Assessment Billing - CAITLIN-7 Assessment Tool: CAITLIN-7 Assessment 19410 ([id number])
== END 2023-09-02 12:12 | disposition home or self-care (01) ==
PROVIDERS: PCP Internal Medicine; Visit Provider Internal Medicine
DX: I10 Essential (primary) hypertension (principal); F32.2 Major depressive disorder, single episode, severe without psychotic features; E66.01 Morbid (severe) obesity due to excess calories; Z23 Encounter for immunization; Z68.42 Body mass index [BMI] 45.0-49.9, adult; R73.03 Prediabetes; E78.9 Disorder of lipoprotein metabolism, unspecified; E03.8 Other specified hypothyroidism
CPT/HCPCS: 90471; 90686; 99214

== ENCOUNTER 2024-01-05 06:01 | Outpatient (REF) | payer MEDICARE, MEDICAID, SELFPAY ==
[2024-01-05 11:40] LABS: MANUAL DIFF FLAG NO
[2024-01-05 11:49] LABS: Basophils Percent Auto 0.4 % (0-2); Eosinophils Absolute Auto 0.2 X10*3/uL (0.0-0.4); Eosinophils Percent Auto 3.2 % (0-4); Imm Gran Abs Auto 0.02 X10*3/uL (0.00-0.03); Imm Gran Pct Auto 0.3 % (0.0-0.4); Lymphocytes Absolute Auto 2.7 X10*3/uL (1.2-4.9); Lymphocytes Percent Auto 37.1 % (20-40); Mean Corpuscular HGB Conc 32.4 g/dl (31.0-35.0); Mean Corpuscular Hemoglobin 29.3 pg (27.0-33.0); Mean Corpuscular Volume 90.5 fL (80.0-98.0); Mean Platelet Volume 10.7 fL (9.4-12.3); Monocytes Absolute Auto 0.6 X10*3/uL (0.1-1.2); Neutrophils Absolute Auto 3.7 x10*3/uL (2.0-8.3); Platelet Count 319 X10*3/uL (160-400); Red Blood Count 4.09 X10*6/uL (4.20-5.50); Red Cell Distribution Width 15.1 % (11.0-16.0); White Blood Count 7.2 X10*3/uL (4.8-10.8)
[2024-01-05 12:07] LABS: Estimated Average Glucose 128 mg/dL; Hemoglobin A1c % 6.1 % (<6.0)
[2024-01-05 12:12] LABS: Alanine Aminotransferase 11 U/L (0-31); Albumin Level 3.6 g/dL (3.5-5.0); Alkaline Phosphatase 69 U/L (39-117); Anion Gap 13 (12-20); Aspartate Amino Transferase 11 U/L (5-31); Bilirubin Total 0.2 mg/dL (0.0-1.0); Blood Urea Nitrogen 11 mg/dL (9-16); Calcium 9.2 mg/dL (8.4-10.2); Carbon Dioxide 26 mmol/L (22-29); Chloride 106 mmol/L (96-108); Cholesterol 198 mg/dL (<200); Estimated Glomerular Filt Rate > 60; Glucose Fasting 115 mg/dL (60-99); HDL Cholesterol 41 mg/dL (>40); LDL Cholesterol Calculated 125 mg/dL (<100); Potassium 4.3 mmol/L (3.3-5.1); Sodium 141 mmol/L (135-145); Total Protein 7.1 g/dL (6.5-8.0); Triglycerides 162 mg/dL (<150)
[2024-01-05 12:29] LABS: Valproate 67.6 mcg/mL (50.0-100.0)
[2024-01-05 12:30] LABS: TSH reflex Free T4 1.52 uIU/mL (0.32-4.0)
== END 2024-01-05 06:02 | disposition home or self-care (01) ==
LOC: HO.HMGCLDS 06:01
PROVIDERS: PCP Internal Medicine; Referring Provider Registered Nurse; Visit Provider Internal Medicine
DX: Z79.899 Other long term (current) drug therapy (principal)
CPT/HCPCS: 36415; 80053; 80061; 80164; 83036; 84443; 85025

== ENCOUNTER 2024-01-06 10:46 | Outpatient (AMB) | payer MEDICARE, MEDICAID, SELFPAY ==
[2024-01-06 10:53] VITALS: BP 128/78; PULSE 74; O2SAT 96; BMI 48.3
--- NOTE | 2024-01-06 10:53 | A.OFFVIS_ITS ---
Intake Vital Signs 01/06/24 10:53 Height 5 ft 1 in Weight 255 lb 8 oz BMI 48.3 BP 128/78 Blood Pressure Location Lt brachial Position Sitting Pulse 74 Pulse Source Pulse Oximeter Pulse Oximetry (%) 96 Oxygen Delivery Method Room Air Intake Visit Reasons: SWV G0439 Allergies No Known Allergies [No Known Allergies*] Allergy (Verified 01/06/24 10:57) Medication List - Last Reconciled 01/06/24 by Skye Medellin MD aripiprazole 20 mg PO BEDTIME atenolol 50 mg PO DAILY 90 days divalproex ER 1,500 mg PO BEDTIME levothyroxine 125 mcg PO DAILY 90 days lorazepam 1 mg PO BID PRN simvastatin 80 mg PO DAILY Do you need a note to return to daycare/school/sports/work: No HPI V G0439 HPI Details Patient is a 48-year-old female came for her regular follow-up and Medicare wellness Patient labs done recently She has impaired fasting sugar hemoglobin A1c 6.1 % Blood Pressure is stable patient is on atenolol 50 mg daily no side effects.? Continue levothyroxine 125 mcg for hypothyroidism.? Lipid disorder:? Continue simvastatin 80 mg daily, patient is tolerating medication no side effects BMI is elevated above 40 patient is morbidly obese trying to lose weight She is also dealing with a psychiatric illness through Psychiatry and is taking 3 medications for that With history of major depression, stable at this time Follow-up April HPI Comments History of Present Illness Details AWV Medical/social history reviewed Past medical history reviewed [place] of care / care team list updated Surgical/ hospitalization history reviewed Current medications including OTC and supplements reviewed Family history reviewed Tobacco controlled form updated Alcohol use form updated Illicit drug use in social history reviewed Current diagnosis of depression ?screening updated Appropriate PHQ 2/PHQ-9 completed . Vital signs reviewed Alcohol tobacco drug use reviewed and discussed . MMSE completed . ? Fall risk: ?Assessed Fall history: ?None Have you had any falls with injury in the past year?? No Have you had 2 or more falls in the past year?? No Fall risk assessment completed Home safety discussed with the patient Functional ability assessed and discussed and documented Activities of daily living reviewed and appropriate actions taken . HRA filled out by the patient and reviewed by provider and scanned . Appropriate written screening schedule established . Any health advise needed provided . Advance care planning discussed with the patient , necessary paperwork filled Examination IPPE/AWE: Balance intact Romberg intact Tandem walk intact walk-in turn intact rise from sit to stand intact . ?Hearing ?whisper test pass . Medication list reviewed, patient is stable on medications All other providers patient is seeing discussed and noted . [facility] Medical History Psychiatric illness Uterine fibroid Pre-diabetes BMI 45.0-49.9, adult Thyroid disease Hypertension Lipid disorder Other specified hypothyroidism Surgical History History of section Family History Father Hypertension Mother Diabetes Lung cancer Maternal Grandfather No problems noted. Maternal Grandmother No problems noted. Paternal Grandfather No problems noted. Paternal Grandmother No problems noted. Other Mental health disorder Social History Housing: House Alcohol intake: never Patient Tobacco Use Status: Never used Tobacco e-Cigarette/Vaping Use: Never Used service: No Current occupational status: disabled Sexual orientation: Straight/Heterosexual Gender identity: Female Cognitive needs: No Hearing needs: No Vision needs: Yes Questionnaire Medicare Wellness Checkup [age] 65-69 What gender do you identify with?: female During the past 4 weeks, how much have you been bothered by emotional problems such as feeling anxious, depressed, irritable, sad or downhearted, and blue?: slightly During the past 4 weeks, has your physical & emotional health limited your social activities with family, friends, neighbors, or groups?: slightly During the past 4 weeks, how much bodily pain have you generally had?: very mild pain During the past 4 weeks, was someone available to help you if you needed & wanted help?: yes, quite a bit During the past 4 weeks, what was the hardest physical activity you could do for at least 2 minutes?: moderate Can you get to places out of walking distance without help? (For eg., can you travel alone on buses, taxis or drive your car?): Yes Can you go shopping for groceries or clothes without someone's help?: Yes Can you prepare your own meals?: Yes Can you do your housework without help?: Yes Because of any health problems, do you need the help of another person with your personal care needs such as eating, bathing, dressing or getting around the house?: No Can you handle your own money without help?: Yes During the past 4 weeks, how would you rate your health in general?: good During the past 4 weeks how have things been going for you?: good & bad parts about equal Are you having difficulties driving your car?: no Do you always fasten your seat belt when you are in a car?: yes, usually During past 4 weeks, have you been bothered by the following: never: Falling or dizzy when standing up, Sexual problems?, Trouble eating well?, Teeth or denture problems? and Problems using the telephone? and seldom: Tiredness or fatigue? Have you fallen 2 or more times in the past year?: No Are you afraid of falling?: No Are you a smoker?: no During the past 4 weeks, how many drinks of wine, beer, or other alcoholic beverages did you have?: no alcohol at all Do you exercise for about 20 minutes 3 or more times a week?: no, I usually do not exercise this much Have you been given information to help with the following?: yes: Keeping track of your medications? and no: Hazards in your house that might hurt you? How often do you have trouble taking medicines the way you have been told to take them?: sometimes I take medicine as prescribed How confident are you that you can control & manage most of your health problems?: somewhat confident What is your race?: White Mini Mental State Exam (MMSE) Orientation What is the (year) (season) (date) (day) (month)?: year, season, date, day and month Where are we (state) (county) (town or city) (hospital) (floor)?: state, county, town or city, hospital/clinic and floor Score Score: 10 Activity of Daily Living Bathing - sponge bath, tub bath or shower: receives no assistance (gets in/out by self, if usual bathing means Dressing - getting clothes from closets & drawers, including inner/outer garments & fasteners.: gets clothes & gets completely dressed without help Toileting - going to the 'toilet room' for urine/bowel elimination & cleaning self/arranging clothes: goes to toilet room, cleans self, arranges clothes without help Transfer: moves in & out of bed and chair without help (may use support object) Continence: controls urination/bowel movements completely by self Feeding: feeds self without help Total Score: 0 Information obtained from: patient Using telephone: independent Traveling: independent Shopping: needs assistance Preparing meals: needs assistance Housework: independent Taking medicine: independent Managing money: needs assistance PHQ-9 Over the last 2 weeks, how often have you been bothered by any of the following problems? 1. Little interest or pleasure in doing things: not at all 2. Feeling down, depressed, or hopeless: several days 3. Trouble falling or staying asleep, or sleeping too much: several days 4. Feeling tired or having little energy: several days 5. Poor appetite or overeating: not at all 6. Feeling bad about yourself - or that you are a failure or have let yourself or your family down: not at all 7. Trouble concentrating on things, such as reading the newspaper or watching television: not at all 8. Moving or speaking so slowly that other people could have noticed. Or the opposite - being so fidgety or restless that you have been moving around a lot more than usual: not at all 9. Thoughts that you would be better off or of hurting yourself in some way: not at all Total score: 3 Depression Screening Interpretation: Negative Depression Screening Done: Yes 73203 - PHQ-9 Billing: Yes Source: Developed by Drs. Rahul Tiwari, Oksana Bucio, Miky Winn and colleagues, with an educational hilaria from [employer]. Review of Systems Const Denies chills and Denies fever(s) ENT Denies epistaxis and Denies nasal discharge Card Denies chest pain Resp Denies chest congestion, Denies cough and Denies hemoptysis GI Denies diarrhea and Denies nausea Skin/Breast Denies rash Neuro Reports no additional complaints Psych Reports no additional complaints Endo Reports no additional complaints Physical Exam Vital Signs: Last Vital Signs Pulse 74 01/06/24 10:53 BP 128/78 01/06/24 10:53 Pulse Ox 96 01/06/24 10:53 Oxygen Delivery Method Room Air 01/06/24 10:53 BMI result Body Mass Index 48.3 Const General: cooperative, comfortable and no acute distress Orientation/consciousness: patient oriented x3 HEENT Head: Yes normocephalic Eyes General: appearance normal, both eyes and all related structures Neck Other: Supple Neck: Yes supple Resp Effort & Inspection: normal respiratory effort, no cough and no stridor Cardio Rhythm: regular rhythm Heart sounds: S1 normal heart sound present and S2 normal heart sound present Skin General skin exam: turgor normal Neuro Other: Motor sensory intact General: patient oriented x3, tone normal and moves all extremities Extrem Other: No lower extremity swelling. Right lower extremity: no edema Left lower extremity: no edema Psych Other: Normal effect, speech clear Assessment & Plan Assessment & Plan (1) Medicare annual wellness visit, subsequent: Code(s): Z00.00 - Encounter for general adult medical examination without abnormal findings (2) Major depressive disorder, severe: Code(s): F32.2 - Major depressive disorder, single episode, severe without psychotic features (3) Other specified hypothyroidism: Code(s): E03.8 - Other specified hypothyroidism (4) Lipid disorder: Code(s): E78.9 - Disorder of lipoprotein metabolism, unspecified (5) Pre-diabetes: Code(s): R73.03 - Prediabetes (6) Psychiatric illness: Code(s): F99 - Mental disorder, not otherwise specified (7) BMI 45.0-49.9, adult: Code(s): Z68.42 - Body mass index [BMI] 45.0-49.9, adult (8) Hypertension, essential: Code(s): I10 - Essential (primary) hypertension (9) Morbid obesity: Code(s): E66.01 - Morbid (severe) obesity due to excess calories Plan Patient is a 48-year-old female came for her regular follow-up and Medicare wellness Patient labs done recently She has impaired fasting sugar hemoglobin A1c 6.1 % Blood Pressure is stable patient is on atenolol 50 mg daily no side effects.? Continue levothyroxine 125 mcg for hypothyroidism.? Lipid disorder:? Continue simvastatin 80 mg daily, patient is tolerating medication no side effects BMI is elevated above 40 patient is morbidly obese trying to lose weight She is also dealing with a psychiatric illness through Psychiatry and is taking 3 medications for that With history of major depression, stable at this time Follow-up April Quality Reporting (2019) Depression/Bipolar (159/160/161/177) PHQ-9: Total score: 3 Coding Level of Care Code Medicare Subsequent (G0439) Est Pt Level 4 (30915) Diagnoses Medicare annual wellness visit, subsequent Z00.00 Major depressive disorder, severe F32.2 Other specified hypothyroidism E03.8 Lipid disorder E78.9 Pre-diabetes R73.03 Psychiatric illness F99 BMI 45.0-49.9, adult Z68.42 Hypertension, essential I10 Morbid obesity E66.01 CPT Codes Advance Care Planning - Time spent: 1-15 minutes, not on file ([id number]) Advance Care Planning Advance Care Planning discussion: Completed/Scanned Forms completed: [employer] Time spent: 1-15 minutes, not on file
== END 2024-01-06 11:13 | disposition home or self-care (01) ==
PROVIDERS: PCP Internal Medicine; Visit Provider Internal Medicine
DX: Z00.00 Encounter for general adult medical examination without abnormal findings (principal); F32.2 Major depressive disorder, single episode, severe without psychotic features; Z68.42 Body mass index [BMI] 45.0-49.9, adult; E66.01 Morbid (severe) obesity due to excess calories; E03.8 Other specified hypothyroidism; E78.9 Disorder of lipoprotein metabolism, unspecified; R73.03 Prediabetes; F99 Mental disorder, not otherwise specified; I10 Essential (primary) hypertension
CPT/HCPCS: 1124F; G0439

== ENCOUNTER 2024-01-22 10:08 | Outpatient (REF) | payer MEDICARE, MEDICAID, SELFPAY ==
[2024-01-26 09:19] LABS: HPV mRNA E6/E7 Not Detected (Not Detected)
== END 2024-01-22 10:09 | disposition home or self-care (01) ==
LOC: HO.LNP 10:08
PROVIDERS: PCP Internal Medicine; Visit Provider Advanced Practice Midwife
DX: Z01.419 Encounter for gynecological examination (general) (routine) without abnormal findings (principal); Z11.51 Encounter for screening for human papillomavirus (HPV); D21.9 Benign neoplasm of connective and other soft tissue, unspecified
CPT/HCPCS: 87624; 88175; 99212; G0101; Q0091

== ENCOUNTER 2024-01-22 10:08 | Outpatient (AMB) | payer MEDICARE, MEDICAID, SELFPAY ==
[2024-01-22 10:49] VITALS: BP 110/78; BMI 48.2
--- NOTE | 2024-01-22 10:49 | A.OFFVIS_ITS ---
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 Doing well with no concerns. She tries to eat healthy and stays active with exercise-walking. Menses skipping a month at times, some hot flashes. History of uterine fibroid. Currently is not sexually active often, uses condoms. She denies vaginal itching and irritation. STI screening offered; she declines. Denies family history of breast, ovarian or colon cancer. Last pap smear 2018, negative. Mammogram: due. REPLACED BY [facility] Medical History Psychiatric illness Uterine fibroid Pre-diabetes BMI 45.0-49.9, adult Thyroid disease Hypertension Lipid disorder Other specified hypothyroidism Surgical History History of section Family History Father Hypertension Mother Diabetes Lung cancer Maternal Grandfather No problems noted. Maternal Grandmother No problems noted. Paternal Grandfather No problems noted. Paternal Grandmother No problems noted. Other Mental health disorder Social History Housing: House Alcohol intake: never Patient Tobacco Use Status: Never used Tobacco e-Cigarette/Vaping Use: Never Used service: No Current occupational status: disabled Sexual orientation: Straight/Heterosexual Gender identity: Female Cognitive needs: No Hearing needs: No Vision needs: Yes Female Reproductive History Menstrual Duration of menses: 3-5 days Date of last menstrual period: 01/04/24 Total pregnancies: 1 Full term: 1 Number of Living Children: 1 Date of last pap smear: 12/17/18 (neg pap and hpv) Date of Mammogram: 01/08/23 (Birad 1) Review of Systems Const All systems reviewed & are unremarkable except as noted in HPI and below Reports as per HPI Eyes Reports no additional complaints ENT Reports no additional complaints Card Reports no additional complaints Resp Reports no additional complaints GI Reports as per HPI and Reports no additional complaints Reports as per HPI Musc Reports no additional complaints Skin/Breast Reports as per HPI Neuro Reports no additional complaints Psych Reports no additional complaints Endo Reports no additional complaints Cristo/Lymph Reports no additional complaints Aller/Immun Reports no additional complaints Physical Exam Vital Signs: Last Vital Signs BP 110/78 01/22/24 10:49 BMI result Body Mass Index 48.2 Const General: cooperative, healthy appearing, no acute distress, well developed and alert Orientation/consciousness: patient oriented x3 HEENT Head: Yes normal to inspection Eyes General: appearance normal, both eyes and all related structures Neck Neck: Yes normal visual inspection Thyroid: Thyroid normal Chest Chest palpation & inspection: normal inspection of the chest and other (no puckering, dimpling, peau de orange, retraction, discharge, masses) Breast/axilla inspection: normal inspection of the breasts Breast/axilla palpation: normal palpation of the breasts Resp Effort & Inspection: normal respiratory effort GI Inspection: Yes normal to inspection and Yes obesity Palpation (GI): Soft to palpation Rectal Exam - Female: deferred General: Yes bladder normal to palpation External Female Exam: normal external appearance and normal appearance of the urethra Speculum Exam - Vagina: normal appearance of the vagina, normal palpation and normal vaginal discharge Speculum Exam - Cervix: normal appearance of the cervix and normal palpation Bimanual exam- vagina & uterus: normal bimanual exam, normal palpation, uterine size normal, bladder normal to palpation, normal palpation and non-tender Bimanual Exam- Adnexa, other: no masses Skin General skin exam: no rashes or lesions noted Rashes: no rashes Neuro General: patient oriented x3 Cognition (Neuro): normal cognition Extrem General: Yes normal to inspection Psych Attitude: cooperative Thought process: Normal thought process present Assessment & Plan Assessment & Plan (1) Encounter for well woman exam with routine gynecological exam: Code(s): Z01.419 - Encounter for gynecological examination (general) (routine) without abnormal findings Category: Medical (2) Fibroid: Code(s): D21.9 - Benign neoplasm of connective and other soft tissue, unspecified Plan Discussed: Current recommendations for pap smears per ASCCP guidelines. Pap obtained today. Breast awareness and periodic breast exams. Maintain a healthy lifestyle including a well balanced diet and routine exercise. Use condoms for STI and prevention. Ultrasound for fibroid yearly stability check. Monitor menstrual cycles, report any unscheduled bleeding, bleeding episodes <24 days apart or heavy/prolonged menstrual bleeding. Call the office for a follow up for any concerns. Mammogram yearly. Order placed today. Colonoscopy >45, or at risk sooner. Patient verbalizes understanding and agrees to the plan of care. She was given opportunity to ask questions and all questions were answered to the best of my ability. 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 This note is constructed using voice recognition software. While every effort has been made to ensure accuracy, collision repairer errors may have been included. Orders: Orders MM tomosynthesis screening BI Today Z12.31 - Encounter for screening mammogram for malignant neoplasm of breast US pelvic and transvaginal Today D21.9 - Benign neoplasm of connective and other soft tissue, unspecified PAP + HPV E6/E7 rfx 18/45 Today D21.9 - Benign neoplasm of connective and other soft tissue, unspecified, Z01.419 - Encounter for gynecological examination (general) (routine) without abnormal findings Coding Level of Care Code Est Pt Prev Care 40-64y(68403) Diagnoses Encounter for well woman exam with routine gynecological exam Z01.419 Fibroid D21.9
== END 2024-01-22 11:29 | disposition home or self-care (01) ==
PROVIDERS: PCP Internal Medicine; Visit Provider Advanced Practice Midwife
DX: Z01.419 Encounter for gynecological examination (general) (routine) without abnormal findings (principal); D21.9 Benign neoplasm of connective and other soft tissue, unspecified
CPT/HCPCS: 99213; G0101; Q0091

== ENCOUNTER 2024-01-28 12:51 | Outpatient (REF) | payer MEDICARE, MEDICAID, SELFPAY ==
--- NOTE | ~2024-01-28 | US_ITS ---
EXAMINATION: US PELVIS COMPLETE CLINICAL INFORMATION: Additional Notes/Special Instructions Yearly lead stability check : COMPARISON: Pelvic ultrasound 12/09/2022 TECHNIQUE: Transabdominal and transvaginal imaging was performed. FINDINGS: The uterus is of normal size and echogenicity measuring 8.1 x 4.0 cm. A regular homogeneous endometrium is identified measuring 1 cm. A 1.8 cm intramural myoma with a possible small submucosal component previously 2.1 cm. Both ovaries are of normal size and echogenicity. The right measures 1.5 x 0.8 x 1.7 cm for a volume of 1 mL. The left measures 1.8 x 1.0 x 1.3 cm for a volume of 1.3 mL. There is no pelvic free fluid. US/US pelvic and transvaginal IMPRESSION: A 1.8 cm intramural myoma with a possible small submucosal component previously 2.1 cm.
== END 2024-01-28 12:52 | disposition home or self-care (01) ==
LOC: HO.HMGCX 12:51
PROVIDERS: PCP Internal Medicine; Visit Provider Advanced Practice Midwife
DX: D21.9 Benign neoplasm of connective and other soft tissue, unspecified (principal)
CPT/HCPCS: 76830; 76856

== ENCOUNTER 2024-02-04 12:55 | Outpatient (REF) | payer MEDICARE, MEDICAID, SELFPAY | END 2024-02-04 12:56 | disposition home or self-care (01) | LOC: HO.MAMMO 12:55 | PROVIDERS: PCP Internal Medicine; Visit Provider Advanced Practice Midwife | DX: Z12.31 Encounter for screening mammogram for malignant neoplasm of breast (principal) | CPT/HCPCS: 77063; 77067 ==

== ENCOUNTER → 2024-02-04 13:15 | Outpatient (BNV) | payer MEDICARE, MEDICAID, SELFPAY | PROVIDERS: PCP Internal Medicine; Visit Provider Radiology Diagnostic Radiology | DX: Z12.31 Encounter for screening mammogram for malignant neoplasm of breast (principal) | CPT/HCPCS: 77063; 77067 ==

== ENCOUNTER 2024-02-25 10:56 | Outpatient (AMB) | payer MEDICARE, MEDICAID, SELFPAY ==
--- NOTE | 2024-02-25 11:03 | A.OFFVIS_ITS ---
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 She reports her menses are skipping at times. She reports some frequency of urination with no discomfort, and occasional left lower quadrant pain. She denies any bowel changes. [facility] Medical History Psychiatric illness Uterine fibroid Pre-diabetes BMI 45.0-49.9, adult Thyroid disease Hypertension Lipid disorder Other specified hypothyroidism Surgical History History of section Family History Father Hypertension Mother Diabetes Lung cancer Maternal Grandfather No problems noted. Maternal Grandmother No problems noted. Paternal Grandfather No problems noted. Paternal Grandmother No problems noted. Other Mental health disorder Social History Housing: House Alcohol intake: never Patient Tobacco Use Status: Never used Tobacco e-Cigarette/Vaping Use: Never Used service: No Current occupational status: disabled Sexual orientation: Straight/Heterosexual Gender identity: Female Cognitive needs: No Hearing needs: No Vision needs: Yes Review of Systems Const All systems reviewed & are unremarkable except as noted in HPI and below Endo Reports no additional complaints Physical Exam Vital Signs: Last Vital Signs BP 122/84 02/25/24 11:04 BMI result Body Mass Index 48.2 Const General: cooperative, healthy appearing and no acute distress Psych Appearance: well kempt Attitude: cooperative Thought process: Normal thought process present Results AMB Urinalysis, Automated UA Leukoctes 0 Kallie/uL Last Edit by YUNG Isbell on 02/25/24 11:29 UA Nitrite Negative Last Edit by YUNG Isbell on 02/25/24 11:29 UA Urobilinogen 0 mg/dL Last Edit by Karon Willett NEFTALIHolli on 02/25/24 11:2 9 UA Protein 1 mg/dL Last Edit by Karon Willett YUNG on 02/25/24 11:29 UA pH 6.0 Last Edit by Karon Willett Holli on 02/25/24 11:29 UA Blood 0 Roni/uL Last Edit by Karon Willett [facility] on 02/25/24 11:29 UA Specific [place] 1.010 Last Edit by Karon Willett [facility] on 02/25/24 11:29 UA Ketone Positive Last Edit by Karon Willett [facility] on 02/25/24 11:29 trace Karon Sowsuresh 02/25/24 11:29 UA Bilirubin 0 mg/dL Last Edit by Karon Willett Holli on 02/25/24 11:29 UA Glucose 0 mg/dL Last Edit by Karon Willett [facility] on 02/25/24 11:29 Results Reviewed Results Reviewed: [facility] [address] [place] [address] [place] [id number] Ultrasound Report Signed Patient: Yesika Batres MR#: [id number] : 1975 Acct:[id number] Age/Sex: 48 / F ADM Date: 01/28/24 Loc: HO.HMGCX Attending Dr: Josefina Weldon CNM Ordering Physician: Josefina Weldon CNM Date of Service: 01/28/24 Procedure(s): US pelvic and transvaginal Accession Number(s): [id number] cc: Skye Medellin MD; Josefina Weldon CNM~ EXAMINATION: US PELVIS COMPLETE CLINICAL INFORMATION: Additional Notes/Special Instructions Yearly lead stability check : COMPARISON: Pelvic ultrasound 12/09/2022 TECHNIQUE: Transabdominal and transvaginal imaging was performed. FINDINGS: The uterus is of normal size and echogenicity measuring 8.1 x 4.0 cm. A regular homogeneous endometrium is identified measuring 1 cm. A 1.8 cm intramural myoma with a possible small submucosal component previously 2.1 cm. Both ovaries are of normal size and echogenicity. The right measures 1.5 x 0.8 x 1.7 cm for a volume of 1 mL. The left measures 1.8 x 1.0 x 1.3 cm for a volume of 1.3 mL. There is no pelvic free fluid. US/US pelvic and transvaginal IMPRESSION: A 1.8 cm intramural myoma with a possible small submucosal component previously 2.1 cm. Dictated By: Karoline Yuan MD Signed By: <Electronically signed by Karoline Yuan MD in OV> 02/11/24 1821 DD/ 1307 TD/TT: Anesthesia Associate: Assessment & Plan Assessment & Plan (1) Encounter to discuss test results: Code(s): Z71.2 - Person consulting for explanation of examination or test findings (2) Fibroid: Code(s): D21.9 - Benign neoplasm of connective and other soft tissue, unspecified (3) Urinary frequency: Code(s): R35.0 - Frequency of micturition (4) Pelvic pain: Code(s): R10.2 - Pelvic and perineal pain Plan Discussed: Follow up for fibroids stability. Ultrasound findings single fibroid-1.8 cm, previously 2.1 cm, stable. Ovaries normal. Causes for pelvic pain can include GI, urinary, muscular cell skeletal and improvement leader causes. No apparent improvement leader reason for her pain. Advised her to observe if there is any precipitating factors and to discuss with her primary care at her next visit, unless she has any increase in pain that persists she should call sooner for a urgent evaluation. Counseled re: Leiomyoma: common pelvic neoplasm. Differential diagnosis-may include but not limited to- leiomyosarcoma which is a rare uterine sarcoma 3- 7/100,000, difficult to distinguish from fibroids on ultrasound from uterine sarcoma's. Unlikely any single test will have a highly positive predictive value. Stable fibroid. Monitor menstrual cycles, report any unscheduled bleeding, bleeding episodes <24 days apart or heavy/prolonged menstrual bleeding. Menopause verses perimenopause. Menopause is definitive of 1 year of no menses or 12 months in succession. Report any abnormal uterine bleeding in example prolonged episodes, or short intervals less than 24 days. Has a annual exam scheduled for January of 2025, advised to call sooner if there is any improvement leader concerns. Urinalysis-trace ketones. Advised to avoid excessive caffeine, sugary/artificial sweeteners, carbonated beverages, and to hydrate well approximate 10 glasses of water a day. All of her questions and concerns were addressed to the best of my ability and shared decision making. She is agreeable to the plan of care. This note is constructed using voice recognition software. While every effort has been made to ensure accuracy, chaperone errors may have been included. Coding Level of Care Code Est Pt Level 3 (56632) Diagnoses Encounter to discuss test results Z71.2 Fibroid D21.9 Urinary frequency R35.0 Pelvic pain R10.2
[2024-02-25 11:04] VITALS: BP 122/84; BMI 48.2
== END 2024-02-25 11:32 | disposition home or self-care (01) ==
PROVIDERS: PCP Internal Medicine; Visit Provider Advanced Practice Midwife
DX: Z71.2 Person consulting for explanation of examination or test findings (principal); D21.9 Benign neoplasm of connective and other soft tissue, unspecified; R35.0 Frequency of micturition; R10.2 Pelvic and perineal pain
CPT/HCPCS: 99213

== ENCOUNTER → 2024-02-25 10:56 | Outpatient (BNVA) | payer MEDICARE, MEDICAID, SELFPAY | PROVIDERS: PCP Internal Medicine; Visit Provider Advanced Practice Midwife | DX: R10.32 Left lower quadrant pain (principal); D21.9 Benign neoplasm of connective and other soft tissue, unspecified; R10.2 Pelvic and perineal pain; Z71.2 Person consulting for explanation of examination or test findings | CPT/HCPCS: 81003; 99212 ==

== ENCOUNTER 2024-05-03 09:11 | Outpatient (AMB) | payer MEDICARE, MEDICAID, SELFPAY ==
[2024-05-03 09:15] VITALS: BP 132/80; PULSE 68; O2SAT 98; BMI 49.0
--- NOTE | 2024-05-03 09:15 | A.OFFPC_ITS ---
Vital Signs 05/03/24 09:15 Height 5 ft 1 in Weight 259 lb 8 oz BMI 49.0 BP 132/80 Blood Pressure Location Lt brachial Position Sitting Pulse 68 Pulse Source Pulse Oximeter Pulse Oximetry (%) 98 Oxygen Delivery Method Room Air Intake Visit Reasons: 4 Month F/U Allergies No Known Allergies [No Known Allergies*] Allergy (Verified 05/03/24 09:18) Medication List - Last Reconciled 05/03/24 by Skye Medellin MD aripiprazole 20 mg PO BEDTIME atenolol 50 mg PO DAILY 90 days divalproex ER 1,500 mg PO BEDTIME levothyroxine 125 mcg PO DAILY 90 days lorazepam 1 mg PO BID PRN simvastatin 80 mg PO DAILY Tobacco use date assessed: 05/03/24 Dental Screening Dental Screen Date: 05/03/24 Did you have a dental visit in the last 12 months?: Yes Did you have a dental problem in the last 6 months where you did not have access to dental care?: No Was dental information given to patient?: Patient has dentist HPI 4 Month F/U HPI Details Patient is a 48-year-old female came for her regular follow-up Lab order placed to be done in June She has impaired fasting sugar hemoglobin A1c 6.1 % Blood Pressure is stable patient is on atenolol 50 mg daily no side effects.? Continue levothyroxine 125 mcg for hypothyroidism.? Lipid disorder:? Continue simvastatin 80 mg daily, patient is tolerating medication no side effects BMI is elevated above 40 patient is morbidly obese trying to lose weight She is also dealing with a psychiatric illness through Psychiatry and is taking 3 medications for that With history of major depression, stable at this time Follow-up 4 months Flu vaccine was given today [facility] Medical History Psychiatric illness Uterine fibroid Pre-diabetes BMI 45.0-49.9, adult Thyroid disease Hypertension Lipid disorder Other specified hypothyroidism Surgical History History of section Family History Father Hypertension Mother Diabetes Lung cancer Maternal Grandfather No problems noted. Maternal Grandmother No problems noted. Paternal Grandfather No problems noted. Paternal Grandmother No problems noted. Other Mental health disorder Social History Housing: House Alcohol intake: never Patient Tobacco Use Status: Never used Tobacco e-Cigarette/Vaping Use: Never Used service: No Current occupational status: disabled Sexual orientation: Straight/Heterosexual Gender identity: Female Cognitive needs: No Hearing needs: No Vision needs: Yes Questionnaire PHQ-9 Over the last 2 weeks, how often have you been bothered by any of the following problems? 1. Little interest or pleasure in doing things: not at all 2. Feeling down, depressed, or hopeless: not at all 3. Trouble falling or staying asleep, or sleeping too much: several days 4. Feeling tired or having little energy: several days 5. Poor appetite or overeating: not at all 6. Feeling bad about yourself - or that you are a failure or have let yourself or your family down: not at all 7. Trouble concentrating on things, such as reading the newspaper or watching television: not at all 8. Moving or speaking so slowly that other people could have noticed. Or the opposite - being so fidgety or restless that you have been moving around a lot more than usual: not at all 9. Thoughts that you would be better off or of hurting yourself in some way: not at all Total score: 2 Depression Screening Interpretation: Negative Depression Screening Done: Yes 97176 - PHQ-9 Billing: Yes Source: Developed by Drs. Rahul Tiwari, Oksana Bucio, Miky Winn and colleagues, with an educational hilaria from [employer]. Thrive Questionnaire Date Thrive assessed: 05/03/24 I am a: Patient What is your living situation today?: I have a steady place to live Within the past 12 months, did the food you bought not last and you didn't have the money to get more?: Never true Within the past 12 months, did you worry whether your food would run out before you got money to buy more?: Never true Do you have trouble paying for medicines?: No Do you have trouble getting transportation to medical appointments?: No Do you have trouble paying your heating and electricity bill?: No Do you have trouble taking care of your child, family member or friend?: No Do you have trouble with day-to-day activities such as bathing, preparing meals, shopping, managing finances, etc.?: No Are you currently unemployed and looking for a job?: I choose not to answer this question Are you interested in more education?: No Please select the resources that you would like help with: None Currently or been in a relationship where the following occur: No concerns reported THRIVE Score: 0 AUDIT C Alcohol Use Questionnaire (AUDIT-C) 1. How often do you have a drink containing alcohol?: Never 3. How often do you have six or more drinks on one occasion?: Never Total Score: 0 Score Reviewed/Action Taken: Yes CAITLIN-7 AMB Questionnaire CAITLIN-7 Date CAITLIN - 7 assessed: 05/03/24 Feeling nervous, anxious, or on edge: 1 = Several days Not being able to stop or control worryin = Not at all Worrying too much about different things: 0 = Not at all Trouble relaxin = Several days Being so restless that it is hard to sit still: 0 = Not at all Becoming easily annoyed or irritable: 0 = Not at all Feeling afraid as if something awful might happen: 0 = Not at all Total CAITLIN-7 score (0-4 normal; 5-9 mild; 10-14 moderate; 15-21 severe): 2 Source: Developed by Drs. Rahul Tiwari, Oksana Bucio, Miky Winn and colleagues, with an educational hilaria from [employer]. CAITLIN-7 Assessment Billing CAITLIN-7 Assessment Tool: CAITLIN-7 Assessment 90402 Review of Systems Const Denies chills and Denies fever(s) ENT Denies epistaxis and Denies nasal discharge Card Denies chest pain Resp Denies chest congestion, Denies cough and Denies hemoptysis GI Denies diarrhea and Denies nausea Skin/Breast Denies rash Neuro Reports no additional complaints Psych Reports no additional complaints Endo Reports no additional complaints Physical exam (Primary Care) Vital Signs: Last Vital Signs Pulse 68 05/03/24 09:15 BP 132/80 05/03/24 09:15 Pulse Ox 98 05/03/24 09:15 Oxygen Delivery Method Room Air 05/03/24 09:15 BMI result Body Mass Index 49.0 Tobacco/Smoking Status: Tobacco use Status Tobacco use date assessed 05/03/24 05/03/24 09:19 Patient Tobacco Use Status Never used Tobacco 05/03/24 09:19 e-Cigarette/Vaping Use Never Used 05/03/24 09:19 PHQ-9: PHQ-9 Score PHQ-9: Total score 2 05/03/24 09:30 Depression Screening Interpretation: Negative Thrive Assessment: Date of Thrive Assessment Date Thrive assessed 05/03/24 05/03/24 09:19 Currently or been in a relationship where the following occur: No concerns reported Const General: cooperative, comfortable and no acute distress Orientation/consciousness: patient oriented x3 HENMT Head: Yes normocephalic Eyes General: appearance normal, both eyes and all related structures Neck Neck: Yes supple Resp Effort & Inspection: normal respiratory effort, no cough and no stridor Cardio Rhythm: regular rhythm Heart sounds: S1 normal heart sound present and S2 normal heart sound present Skin General skin exam: turgor normal Neuro General: patient oriented x3, tone normal and moves all extremities Extrem Right lower extremity: no edema Left lower extremity: no edema Office Procedures Flu Questionnaire Does the patient have a severe egg allergy?: No Does the patient have severe life threatening allergies?: No Does the patient have a fever or illness today?: No Has the patient ever had Guillain-[place] Syndrome?: No Has the patient ever had any past reaction to a flu shot?: No Immunizations Fluarix Triv 4984-1357 (PF) 45 mcg (15 mcg x 3)/0.5 mL IM syringe Performing Provider: Skye Medellin MD Performing Location: [facility] [place] [facility] Administered by: YUNG Boo on 05/03/24 09:29 Dose Route Admin Location Dispensed Lot Number Expiration Date [facility][NOTE 3] Pipe Bowls Paint Trimmer 0.5 mL IM Right Deltoid 0.5 mL [id number] 01/09/25 [id number] [employer] VIS Given Date VIS Provided VIS Publication Date 05/03/24 Single Vaccine 21 Eligibility Eligibility Date Funding Source Not [facility] Eligible 05/03/24 Private Coding Level of Care Code Est Pt Level 4 (43089) Complex EM visit Add On G2211 Diagnoses Hypertension, essential I10 BMI 45.0-49.9, adult Z68.42 Pre-diabetes R73.03 Lipid disorder E78.9 Major depressive disorder, severe F32.2 Additional Codes CAITLIN-7 Assessment Billing - CAITLIN-7 Assessment Tool: CAITLIN-7 Assessment 76170 ([id number]) Assessment & Plan Assessment & Plan (1) Hypertension, essential: Code(s): I10 - Essential (primary) hypertension Category: Medical (2) BMI 45.0-49.9, adult: Code(s): Z68.42 - Body mass index [BMI] 45.0-49.9, adult Category: Medical (3) Pre-diabetes: Code(s): R73.03 - Prediabetes Category: Medical (4) Lipid disorder: Code(s): E78.9 - Disorder of lipoprotein metabolism, unspecified Category: Medical (5) Major depressive disorder, severe: Code(s): F32.2 - Major depressive disorder, single episode, severe without psychotic features Category: Medical Plan Patient is a 48-year-old female came for her regular follow-up Lab order placed to be done in June She has impaired fasting sugar hemoglobin A1c 6.1 % Blood Pressure is stable patient is on atenolol 50 mg daily no side effects.? Continue levothyroxine 125 mcg for hypothyroidism.? Lipid disorder:? Continue simvastatin 80 mg daily, patient is tolerating medication no side effects BMI is elevated above 40 patient is morbidly obese trying to lose weight She is also dealing with a psychiatric illness through Psychiatry and is taking 3 medications for that With history of major depression, stable at this time Follow-up 4 months Flu vaccine was given today Orders: Orders Hemoglobin A1c Today E78.9 - Disorder of lipoprotein metabolism, unspecified, F32.2 - Major depressive disorder, single episode, severe without psychotic features, I10 - Essential (primary) hypertension, R73.03 - Prediabetes, Z68.42 - Body mass index [BMI] 45.0-49.9, adult Influenza [id number] Immunization Today Z23 - Encounter for immunization Complete Blood Count Auto Diff Today E78.9 - Disorder of lipoprotein metabolism, unspecified, F32.2 - Major depressive disorder, single episode, severe without psychotic features, I10 - Essential (primary) hypertension, R73.03 - Prediabetes, Z68.42 - Body mass index [BMI] 45.0-49.9, adult Comprehensive [place]. Panel Fast Today E78.9 - Disorder of lipoprotein metabolism, unspecified, F32.2 - Major depressive disorder, single episode, severe without psychotic features, I10 - Essential (primary) hypertension, R73.03 - Prediabetes, Z68.42 - Body mass index [BMI] 45.0-49.9, adult Lipid Panel Today E78.9 - Disorder of lipoprotein metabolism, unspecified, F32.2 - Major depressive disorder, single episode, severe without psychotic features, I10 - Essential (primary) hypertension, R73.03 - Prediabetes, Z68.42 - Body mass index [BMI] 45.0-49.9, adult Vitamin D 25-OH (D2 and D3) Today E78.9 - Disorder of lipoprotein metabolism, unspecified, F32.2 - Major depressive disorder, single episode, severe without psychotic features, I10 - Essential (primary) hypertension, R73.03 - Prediabetes, Z68.42 - Body mass index [BMI] 45.0-49.9, adult Vitamin B12 Today E78.9 - Disorder of lipoprotein metabolism, unspecified, F32.2 - Major depressive disorder, single episode, severe without psychotic features, I10 - Essential (primary) hypertension, R73.03 - Prediabetes, Z68.42 - Body mass index [BMI] 45.0-49.9, adult TSH reflex Free T4 Today E78.9 - Disorder of lipoprotein metabolism, unspecified, F32.2 - Major depressive disorder, single episode, severe without psychotic features, I10 - Essential (primary) hypertension, R73.03 - Prediabetes, Z68.42 - Body mass index [BMI] 45.0-49.9, adult
== END 2024-05-03 09:32 | disposition home or self-care (01) ==
PROVIDERS: PCP Internal Medicine; Visit Provider Internal Medicine
DX: I10 Essential (primary) hypertension (principal); F32.2 Major depressive disorder, single episode, severe without psychotic features; Z68.42 Body mass index [BMI] 45.0-49.9, adult; R73.03 Prediabetes; E78.9 Disorder of lipoprotein metabolism, unspecified

== ENCOUNTER → 2024-05-03 09:11 | Outpatient (BNVA) | payer MEDICARE, MEDICAID, SELFPAY | PROVIDERS: PCP Internal Medicine; Visit Provider Internal Medicine | DX: I10 Essential (primary) hypertension (principal); R73.03 Prediabetes; E78.9 Disorder of lipoprotein metabolism, unspecified; F32.2 Major depressive disorder, single episode, severe without psychotic features; E66.01 Morbid (severe) obesity due to excess calories; Z68.42 Body mass index [BMI] 45.0-49.9, adult; Z79.899 Other long term (current) drug therapy; Z23 Encounter for immunization | CPT/HCPCS: 90471; 90656; 96127; 99212 ==

== ENCOUNTER 2024-07-12 06:01 | Outpatient (REF) | payer MEDICARE, MEDICAID, SELFPAY ==
[2024-07-12 09:52] LABS: MANUAL DIFF FLAG NO
[2024-07-12 10:09] LABS: Basophils Percent Auto 0.6 % (0-2); Eosinophils Absolute Auto 0.2 X10*3/uL (0.0-0.4); Eosinophils Percent Auto 3.3 % (0-4); Hematocrit 37.7 % (37.0-47.0); Hemoglobin 11.9 g/dl (12.0-16.0); Imm Gran Abs Auto 0.03 X10*3/uL (0.00-0.03); Imm Gran Pct Auto 0.5 % (0.0-0.4); Lymphocytes Absolute Auto 2.4 X10*3/uL (1.2-4.9); Lymphocytes Percent Auto 36.1 % (20-40); Mean Corpuscular HGB Conc 31.6 g/dl (31.0-35.0); Mean Corpuscular Hemoglobin 29.2 pg (27.0-33.0); Mean Corpuscular Volume 92.4 fL (80.0-98.0); Mean Platelet Volume 10.9 fL (9.4-12.3); Monocytes Absolute Auto 0.6 X10*3/uL (0.1-1.2); Monocytes Percent Auto 8.7 % (2-11); Neutrophils Absolute Auto 3.3 x10*3/uL (2.0-8.3); Neutrophils Percent Auto 50.8 % (45-73); Platelet Count 256 X10*3/uL (160-400); Red Blood Count 4.08 X10*6/uL (4.20-5.50); White Blood Count 6.6 X10*3/uL (4.8-10.8)
[2024-07-12 10:35] LABS: Estimated Average Glucose 134 mg/dL; Hemoglobin A1C 141.4085 umol/L; Hemoglobin A1c % 6.3 % (<6.0); Total Hemoglobin (HGBA1C) 3126.7337 umol/L
[2024-07-12 10:52] LABS: Alanine Aminotransferase 11 U/L (0-31); Albumin Level 3.4 g/dL (3.5-5.0); Alkaline Phosphatase 74 U/L (39-117); Anion Gap 10 (12-20); Aspartate Amino Transferase 17 U/L (5-31); Bilirubin Total 0.3 mg/dL (0.0-1.0); Blood Urea Nitrogen 14 mg/dL (9-16); Calcium 8.7 mg/dL (8.4-10.2); Carbon Dioxide 29 mmol/L (22-29); Chloride 107 mmol/L (96-108); Cholesterol 214 mg/dL (<200); Estimated Glomerular Filt Rate > 60; Glucose Fasting 133 mg/dL (60-99); HDL Cholesterol 40 mg/dL (>40); LDL Cholesterol Calculated 130 mg/dL (<100); Potassium 4.1 mmol/L (3.3-5.1); Sodium 142 mmol/L (135-145); Total Protein 6.9 g/dL (6.5-8.0); Triglycerides 222 mg/dL (<150)
[2024-07-12 11:00] LABS: TSH reflex Free T4 2.62 uIU/mL (0.32-4.0)
[2024-07-12 11:16] LABS: Vitamin B12 655 pg/mL (200-900)
[2024-07-17 14:18] LABS: Vitamin D 25-OH, D2 <4 ng/mL; Vitamin D 25-OH, D3 22 ng/mL; Vitamin D 25-OH, Total 22 ng/mL (30-100)
== END 2024-07-12 06:02 | disposition home or self-care (01) ==
LOC: HO.HMGCLDS 06:01
PROVIDERS: PCP Internal Medicine; Visit Provider Internal Medicine
DX: I10 Essential (primary) hypertension (principal); Z68.42 Body mass index [BMI] 45.0-49.9, adult; R73.03 Prediabetes; E78.9 Disorder of lipoprotein metabolism, unspecified; F32.2 Major depressive disorder, single episode, severe without psychotic features
CPT/HCPCS: 36415; 80053; 80061; 82306; 82607; 83036; 84443; 85025

== ENCOUNTER 2024-09-06 09:23 | Outpatient (AMB) | payer MEDICARE, MEDICAID, SELFPAY ==
[2024-09-06 09:33] VITALS: BP 140/86; PULSE 68; RESP 17; TEMP 36.8; O2SAT 97; BMI 50.0
--- NOTE | 2024-09-06 09:33 | MHC.PC.OV ---
Vital Signs 09/06/24 09:33 Height 5 ft 1 in Weight 264 lb 8 oz BMI 50.0 BP 140/86 H Blood Pressure Location Lt brachial Position Sitting Respiration 17 Pulse 68 Pulse Source Pulse Oximeter Temp 98.2 F Temp Source Oral Pulse Oximetry (%) 97 Oxygen Delivery Method Room Air Intake Visit Reasons: 4 months f/up Allergies No Known Allergies [No Known Allergies*] Allergy (Verified 09/06/24 09:35) Medication List - Last Reconciled 09/06/24 by Skye Medellin MD aripiprazole 20 mg PO BEDTIME atenolol 50 mg PO DAILY 90 days divalproex ER 1,500 mg PO BEDTIME levothyroxine 125 mcg PO DAILY 90 days lorazepam 1 mg PO BID PRN simvastatin 80 mg PO DAILY Tobacco use date assessed: 09/06/24 Dental Screening Dental Screen Date: 09/06/24 Did you have a dental visit in the last 12 months?: Yes Did you have a dental problem in the last 6 months where you did not have access to dental care?: No Was dental information given to patient?: Patient has dentist HPI 4 months f/up HPI Details History - The patient is a 49-year-old female presenting for a regular follow-up visit for chronic disease management. - Essential Hypertension: Recent blood pressure measurement was 140 mmHg, and the patient confessed to missing two doses of prescribed medication. At-home monitoring is not currently practiced. - Hyperlipidemia: Current LDL level is 130 mg/dL. The patient is adherent to her prescribed lipid-lowering therapy. - Vitamin D Deficiency: Not currently taking a vitamin D supplement, despite a known deficiency. script sent - Type 2 Diabetes Mellitus: Hemoglobin A1c is 6.3%, demonstrating satisfactory glucose management without pharmacologic intervention. Problem List - Essential Hypertension - Hyperlipidemia - Vitamin D Deficiency - Type 2 Diabetes Mellitus - Morbid obesity Patient Instructions - Monitor blood pressure at home a couple of times a week. Bring the log of blood pressure readings to the next visit. - Take one capsule of vitamin D supplement daily. - Follow scheduled appointments, including the Medicare wellness visit on January 27. - Undergo blood tests near January 10, prior to the next visit. Review of Systems - General: No fever no chills - Neurological: No headaches no dizziness - Ear nose throat: No sore throat no hearing difficulty no ear pain - Cardiovascular: No syncope, no chest pain, no palpitations - Gastrointestinal: No nausea vomiting or diarrhea - Endocrine: No polyuria polydipsia no heat intolerance - Genitourinary: No dysuria , no blood in urine Physical Exam - General: No acute distress - HEENT: No acute findings - Neck: Supple - Respiratory system: Able to talk in full sentences, no audible wheeze - cardiovascular: S1-S2 regular in rate and rhythm - Gastrointestinal: No pain - Extremities: No new findings - SLEEVE BASTER: Alert awake oriented x3 motor sensory intact - Skin: Normal turgor [facility] Medical History Psychiatric illness Uterine fibroid Pre-diabetes BMI 45.0-49.9, adult Thyroid disease Hypertension Lipid disorder Other specified hypothyroidism Surgical History History of section Family History Father Hypertension Mother Diabetes Lung cancer Maternal Grandfather No problems noted. Maternal Grandmother No problems noted. Paternal Grandfather No problems noted. Paternal Grandmother No problems noted. Other Mental health disorder Social History Housing: House Alcohol intake: never Patient Tobacco Use Status: Never used Tobacco e-Cigarette/Vaping Use: Never Used service: No Current occupational status: disabled Sexual orientation: Straight/Heterosexual Gender identity: Female Cognitive needs: No Hearing needs: No Vision needs: Yes Questionnaire PHQ-9 Over the last 2 weeks, how often have you been bothered by any of the following problems? 1. Little interest or pleasure in doing things: not at all 2. Feeling down, depressed, or hopeless: not at all 3. Trouble falling or staying asleep, or sleeping too much: several days 4. Feeling tired or having little energy: several days 5. Poor appetite or overeating: several days 6. Feeling bad about yourself - or that you are a failure or have let yourself or your family down: not at all 7. Trouble concentrating on things, such as reading the newspaper or watching television: not at all 8. Moving or speaking so slowly that other people could have noticed. Or the opposite - being so fidgety or restless that you have been moving around a lot more than usual: not at all 9. Thoughts that you would be better off or of hurting yourself in some way: not at all Total score: 3 Depression Screening Interpretation: Negative Depression Screening Done: Yes 06605 - PHQ-9 Billing: Yes Source: Developed by Drs. Rahul Tiwari, Oksana Bucio, Miky Winn and colleagues, with an educational hilaria from [employer]. Thrive Questionnaire Date Thrive assessed: 09/06/24 I am a: Patient What is your living situation today?: I have a steady place to live Within the past 12 months, did the food you bought not last and you didn't have the money to get more?: Never true Within the past 12 months, did you worry whether your food would run out before you got money to buy more?: Never true Do you have trouble paying for medicines?: No Do you have trouble getting transportation to medical appointments?: No Do you have trouble paying your heating and electricity bill?: No Do you have trouble taking care of your child, family member or friend?: No Do you have trouble with day-to-day activities such as bathing, preparing meals, shopping, managing finances, etc.?: No Are you currently unemployed and looking for a job?: I choose not to answer this question Are you interested in more education?: No Please select the resources that you would like help with: None Currently or been in a relationship where the following occur: No concerns reported THRIVE Score: 0 AUDIT C Alcohol Use Questionnaire (AUDIT-C) 1. How often do you have a drink containing alcohol?: Never 3. How often do you have six or more drinks on one occasion?: Never Total Score: 0 Score Reviewed/Action Taken: Yes CAITLIN-7 AMB Questionnaire CAITLIN-7 Date CAITLIN - 7 assessed: 09/06/24 Feeling nervous, anxious, or on edge: 1 = Several days Not being able to stop or control worryin = Not at all Worrying too much about different things: 0 = Not at all Trouble relaxin = Not at all Being so restless that it is hard to sit still: 0 = Not at all Becoming easily annoyed or irritable: 0 = Not at all Feeling afraid as if something awful might happen: 0 = Not at all Total CAITLIN-7 score (0-4 normal; 5-9 mild; 10-14 moderate; 15-21 severe): 1 Source: Developed by Drs. Rahul Tiwari, Oksana Bucio, Miky Winn and colleagues, with an educational hilaria from [employer]. CAITLIN-7 Assessment Billing CAITLIN-7 Assessment Tool: CAITLIN-7 Assessment 85987 Physical exam (Primary Care) Vital Signs: Last Vital Signs Temp 98.2 F 09/06/24 09:33 Pulse 68 09/06/24 09:33 Resp 17 09/06/24 09:33 BP 140/86 H 09/06/24 09:33 Pulse Ox 97 09/06/24 09:33 Oxygen Delivery Method Room Air 09/06/24 09:33 BMI result Body Mass Index 50.0 Tobacco/Smoking Status: Tobacco use Status Tobacco use date assessed 09/06/24 09/06/24 09:37 Patient Tobacco Use Status Never used Tobacco 09/06/24 09:34 e-Cigarette/Vaping Use Never Used 09/06/24 09:34 PHQ-9: PHQ-9 Score PHQ-9: Total score 3 09/06/24 09:37 Depression Screening Interpretation: Negative Thrive Assessment: Date of Thrive Assessment Date Thrive assessed 09/06/24 09/06/24 09:37 Currently or been in a relationship where the following occur: No concerns reported Coding Level of Care Code Est Pt Level 4 (47865) Complex EM visit Add On G2211 Diagnoses Hypertension, essential I10 BMI 45.0-49.9, adult Z68.42 Pre-diabetes R73.03 Lipid disorder E78.9 Major depressive disorder, severe F32.2 Additional Codes CAITLIN-7 Assessment Billing - CAITLIN-7 Assessment Tool: CAITLIN-7 Assessment 34645 ([id number]) PHQ-9 - 65439 - PHQ-9 Billing: Yes ([id number]) Assessment & Plan Assessment & Plan (1) Hypertension, essential: Code(s): I10 - Essential (primary) hypertension Category: Medical (2) BMI 45.0-49.9, adult: Code(s): Z68.42 - Body mass index [BMI] 45.0-49.9, adult Category: Medical (3) Pre-diabetes: Code(s): R73.03 - Prediabetes Category: Medical (4) Lipid disorder: Code(s): E78.9 - Disorder of lipoprotein metabolism, unspecified Category: Medical (5) Major depressive disorder, severe: Code(s): F32.2 - Major depressive disorder, single episode, severe without psychotic features Category: Medical Plan History - The patient is a 49-year-old female presenting for a regular follow-up visit for chronic disease management. - Essential Hypertension: Recent blood pressure measurement was 140 mmHg, and the patient confessed to missing two doses of prescribed medication. At-home monitoring is not currently practiced. - Hyperlipidemia: Current LDL level is 130 mg/dL. The patient is adherent to her prescribed lipid-lowering therapy. - Vitamin D Deficiency: Not currently taking a vitamin D supplement, despite a known deficiency. script sent - Type 2 Diabetes Mellitus: Hemoglobin A1c is 6.3%, demonstrating satisfactory glucose management without pharmacologic intervention. Problem List - Essential Hypertension - Hyperlipidemia - Vitamin D Deficiency - Type 2 Diabetes Mellitus - Morbid obesity Patient Instructions - Monitor blood pressure at home a couple of times a week. Bring the log of blood pressure readings to the next visit. - Take one capsule of vitamin D supplement daily. - Follow scheduled appointments, including the Medicare wellness visit on January 27. - Undergo blood tests near January 10, prior to the next visit. Orders: Orders Complete Blood Count Auto Diff Today E78.9 - Disorder of lipoprotein metabolism, unspecified, F32.2 - Major depressive disorder, single episode, severe without psychotic features, I10 - Essential (primary) hypertension, R73.03 - Prediabetes, Z68.42 - Body mass index [BMI] 45.0-49.9, adult Vitamin D 25-OH (D2 and D3) Today E78.9 - Disorder of lipoprotein metabolism, unspecified, F32.2 - Major depressive disorder, single episode, severe without psychotic features, I10 - Essential (primary) hypertension, R73.03 - Prediabetes, Z68.42 - Body mass index [BMI] 45.0-49.9, adult Hemoglobin A1c Today E78.9 - Disorder of lipoprotein metabolism, unspecified, F32.2 - Major depressive disorder, single episode, severe without psychotic features, I10 - Essential (primary) hypertension, R73.03 - Prediabetes, Z68.42 - Body mass index [BMI] 45.0-49.9, adult Comprehensive Met. Panel Today E78.9 - Disorder of lipoprotein metabolism, unspecified, F32.2 - Major depressive disorder, single episode, severe without psychotic features, I10 - Essential (primary) hypertension, R73.03 - Prediabetes, Z68.42 - Body mass index [BMI] 45.0-49.9, adult LDL Cholesterol Direct Today E78.9 - Disorder of lipoprotein metabolism, unspecified, F32.2 - Major depressive disorder, single episode, severe without psychotic features, I10 - Essential (primary) hypertension, R73.03 - Prediabetes, Z68.42 - Body mass index [BMI] 45.0-49.9, adult Medications: New cholecalciferol (vitamin D3) 25 mcg PO DAILY 90 days 90 caps 1RF
--- OUTSIDE RECORDS SUMMARY | 2024-09-06 10:22 | XMS_ITS | Clinical Summary ---
Author Organization [facility] Address [address] [place] [address] Care Team Providers Care Park Attendant Name Role Phone Unavailable Primary Care Provider Unavailabl e Social History Tobacco Use Types Packs/Day Years Used Date Smoking Tobacco: Never Assessed Sex and Gender Information Value Date Recorded Sex Assigned at Not on file Gender Identity Not on file Sexual Orientation Not on file Plan of Treatment Health Maintenance Due Date Last Done Comments Hepatitis C Virus Screening 1975 HIV Screening 1988 DTaP/Tdap/Td Vaccines (1 - Tdap) 1994 Hepatitis B Vaccines (1 of 3 - 19+ 3-dose series) 1994 COVID-19 Vaccine (2023-2 5 season) 2024 Pneumococcal Vaccine: Pediat lachelle (0-5 Years) and At-Risk Patients (6 to 49 Years) Aged Out No longer eligible b ased on patient's age to complete this topic
== END 2024-09-06 09:58 | disposition home or self-care (01) ==
PROVIDERS: PCP Internal Medicine; Visit Provider Internal Medicine
DX: I10 Essential (primary) hypertension (principal); Z68.42 Body mass index [BMI] 45.0-49.9, adult; F32.2 Major depressive disorder, single episode, severe without psychotic features; E66.01 Morbid (severe) obesity due to excess calories; R73.03 Prediabetes; E78.9 Disorder of lipoprotein metabolism, unspecified

== ENCOUNTER → 2024-09-06 09:23 | Outpatient (BNVA) | payer MEDICARE, MEDICAID, SELFPAY | PROVIDERS: PCP Internal Medicine; Visit Provider Internal Medicine | DX: I10 Essential (primary) hypertension (principal); R73.03 Prediabetes; E78.9 Disorder of lipoprotein metabolism, unspecified; F32.2 Major depressive disorder, single episode, severe without psychotic features | CPT/HCPCS: 96127; 99212 ==

== ENCOUNTER 2024-11-21 12:19 | Outpatient (AMB) | payer MEDICARE, MEDICAID, SELFPAY ==
--- OUTSIDE RECORDS SUMMARY | 2024-11-21 12:45 | XMS_ITS | Clinical Summary ---
Author Organization [facility] Address [address] [place] [address] Care Team Providers Care Guest Experience Captain Name Role Phone Unavailable Primary Care Provider Unavailabl e Social History Tobacco Use Types Packs/Day Years Used Date Smoking Tobacco: Never Assessed Comments Unknown Sex and Gender Information Value Date Recorded Sex Assigned at Not on file Legal Sex Female 10:16 PM EDT Gender Identity Not on file Sexual Orientation [...]
[2024-11-21 13:00] VITALS: BP 118/76; PULSE 70; O2SAT 98
--- NOTE | 2024-11-21 13:00 | MHC.OFFWIV ---
Intake Vital Signs 11/21/24 13:00 Weight 266 lb BP 118/76 Blood Pressure Location Rt brachial Position Sitting Pulse 70 Pulse Source Pulse Oximeter Pulse Oximetry (%) 98 Oxygen Delivery Method Room Air Intake Visit Reasons: EP Tick stuck on stomach Intake Note: Patient here for tick bite on left side of stomach. Patient Tobacco Use Status: Never used Tobacco Allergies No Known Allergies [No Known Allergies*] Allergy (Verified 11/21/24 13:03) Do you need a note to return to daycare/school/sports/work: No HPI HPI Comments History of Present Illness Details 49 y/o Female patient who presents to the walk in clinic with c/o Tick Bite on stomach, still attached to the Skin. She noticed the Tick this morning. She is Asymptomatic. 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 She thinks she might have contact the Tick while moving plywoods. [facility] Medical History (Updated 11/21/24 @ 13:35 by Em Cortez NP) Tick bite of abdomen Psychiatric illness Uterine fibroid Pre-diabetes BMI 45.0-49.9, adult Thyroid disease Hypertension Lipid disorder Other specified hypothyroidism Surgical History History of section Family History Father Hypertension Mother Diabetes Lung cancer Maternal Grandfather No problems noted. Maternal Grandmother No problems noted. Paternal Grandfather No problems noted. Paternal Grandmother No problems noted. Other Mental health disorder Social History Housing: House Alcohol intake: never Patient Tobacco Use Status: Never used Tobacco e-Cigarette/Vaping Use: Never Used service: No Current occupational status: disabled Sexual orientation: Straight/Heterosexual Gender identity: Female Cognitive needs: No Hearing needs: No Vision needs: Yes Review of Systems Const All systems reviewed & are unremarkable except as noted in HPI and below Physical Exam Vital Signs: Last Vital Signs Pulse 70 11/21/24 13:00 BP 118/76 11/21/24 13:00 Pulse Ox 98 11/21/24 13:00 Oxygen Delivery Method Room Air 11/21/24 13:00 Const General: no acute distress Nutritional Appearance: obese morbidly obese Orientation/consciousness: patient oriented x3 GI Inspection: Yes Abdominal panniculus present and Yes obesity Abdomen image: 1. Small Tick entirely removed, clean area and applied Bacitracin ointment. Neuro General: patient oriented x3, gait normal and moves all extremities Psych Speech and movement: Normal speech and movement present Assessment & Plan Assessment & Plan (1) Tick bite of abdomen: Code(s): S30.861A - Insect bite (nonvenomous) of abdominal wall, initial encounter; W57.XXXA - Bitten or stung by nonvenomous insect and other nonvenomous arthropods, initial encounter Qualifiers: Encounter type: initial encounter Qualified Code(s): S30.861A - Insect bite (nonvenomous) of abdominal wall, initial encounter; W57.XXXA - Bitten or stung by nonvenomous insect and other nonvenomous arthropods, initial encounter Plan: Tick was removed completely. Clean area and applied Bacitracin ointment. Ordered Doxy as one time dose. Medications: New doxycycline hyclate 200 mg (2 x 100 mg) PO ONCE 2 caps 0RF S30.861A - Insect bite (nonvenomous) of abdominal wall, initial encounter, W57.XXXA - Bitten or stung by nonvenomous insect and other nonvenomous arthropods, initial encounter Coding Level of Care Code Est Pt Level 4 (82618) Diagnoses Tick bite of abdomen, initial encounter S30.861A; W57.XXXA Encounter type: initial encounter Time Spent (min) 20
== END 2024-11-21 13:41 | disposition home or self-care (01) ==
PROVIDERS: PCP Internal Medicine; Visit Provider Nurse Practitioner Family
DX: S30.861A Insect bite (nonvenomous) of abdominal wall, initial encounter (principal); W57.XXXA Bitten or stung by nonvenomous insect and other nonvenomous arthropods, initial encounter

== ENCOUNTER → 2024-11-21 12:19 | Outpatient (BNVA) | payer MEDICARE, MEDICAID, SELFPAY | PROVIDERS: PCP Internal Medicine; Visit Provider Nurse Practitioner Family | DX: S30.861A Insect bite (nonvenomous) of abdominal wall, initial encounter (principal); W57.XXXA Bitten or stung by nonvenomous insect and other nonvenomous arthropods, initial encounter | CPT/HCPCS: 99212 ==

== ENCOUNTER 2025-01-25 06:02 | Outpatient (REF) | payer MEDICARE, MEDICAID, SELFPAY ==
--- OUTSIDE RECORDS SUMMARY | 2025-01-25 06:04 | XMS_ITS | Clinical Summary ---
Author Organization [facility] Address [address] [place] [address] Care Team Providers Care Community Relations Director Name Role Phone Unavailable Primary Care Provider [...]
[2025-01-25 10:27] LABS: MANUAL DIFF FLAG NO
[2025-01-25 10:35] LABS: Hematocrit 38.7 % (37.0-47.0); Hemoglobin 12.6 g/dl (12.0-16.0); Imm Gran Abs Auto 0.04 X10*3/uL (0.00-0.03); Imm Gran Pct Auto 0.6 % (0.0-0.4); Lymphocytes Absolute Auto 2.7 X10*3/uL (1.2-4.9); Mean Corpuscular HGB Conc 32.6 g/dl (31.0-35.0); Mean Corpuscular Hemoglobin 29.3 pg (27.0-33.0); Mean Corpuscular Volume 90.0 fL (80.0-98.0); NRBC Abs Auto 0.000 X10*3/uL (0.0-0.012); NRBC Pct Auto 0.0 /100WBC (0.0-0.2); Platelet Count 277 X10*3/uL (160-400); Red Blood Count 4.30 X10*6/uL (4.20-5.50); White Blood Count 6.8 X10*3/uL (4.8-10.8)
[2025-01-25 10:38] LABS: Hemoglobin A1C 160.4977 umol/L; Total Hemoglobin (HGBA1C) 3204.6820 umol/L
[2025-01-25 10:59] LABS: Alanine Aminotransferase 13 U/L (0-31); Albumin Level 3.9 g/dL (3.5-5.0); Alkaline Phosphatase 79 U/L (39-117); Anion Gap 12 (12-20); Aspartate Amino Transferase 22 U/L (5-31); Blood Urea Nitrogen 13 mg/dL (9-16); Calcium 9.2 mg/dL (8.4-10.2); Carbon Dioxide 28 mmol/L (22-29); Chloride 106 mmol/L (96-108); Cholesterol 204 mg/dL (<200); Estimated Glomerular Filt Rate > 60; HDL Cholesterol 37 mg/dL (>40); Potassium 4.2 mmol/L (3.3-5.1); Sodium 142 mmol/L (135-145); Total Protein 7.1 g/dL (6.5-8.0); Triglycerides 191 mg/dL (<150)
[2025-01-25 11:22] LABS: Thyroid Stimulating Hormone 3.56 uIU/mL (0.32-4.0)
[2025-01-31 08:01] LABS: Vitamin D 25-OH, D2 <4
[2025-01-31 08:02] LABS: Vitamin D 25-OH, D3 24
[2025-01-31 08:03] LABS: Vitamin D 25-OH, Total 24
== END 2025-01-25 06:03 | disposition home or self-care (01) ==
LOC: HO.HMGCLDS 06:02
PROVIDERS: PCP Internal Medicine; Referring Provider Dietitian, Registered; Visit Provider Internal Medicine
DX: F32.2 Major depressive disorder, single episode, severe without psychotic features (principal); E78.9 Disorder of lipoprotein metabolism, unspecified; R73.03 Prediabetes; Z68.42 Body mass index [BMI] 45.0-49.9, adult; I10 Essential (primary) hypertension
CPT/HCPCS: 36415; 80053; 80061; 80164; 82306; 83036; 83721; 84443; 85025

== ENCOUNTER 2025-01-27 11:10 | Outpatient (AMB) | payer MEDICARE, MEDICAID, SELFPAY ==
--- NOTE | 2025-01-27 11:18 | A.OFFVIS_ITS ---
Intake Vital Signs 01/27/25 11:20 Height 5 ft 1 in Weight 266 lb BMI 50.3 BP 130/74 Blood Pressure Location Lt brachial Position Sitting Pulse 71 Pulse Source Pulse Oximeter Pulse Oximetry (%) 96 Intake Visit Reasons: ELLIE G0439 Allergies No Known Allergies (No Known Allergies*) Allergy (Verified 01/27/25 11:21) Medication List - Last Reconciled 01/27/25 by Skye Medellin MD aripiprazole 20 mg PO BEDTIME atenolol 50 mg PO DAILY 90 days cholecalciferol (vitamin D3) 25 mcg PO DAILY 90 days divalproex ER 1,500 mg PO BEDTIME levothyroxine 125 mcg PO DAILY 90 days lorazepam 1 mg PO BID PRN simvastatin 80 mg PO DAILY Do you need a note to return to daycare/school/sports/work: No HPI V G0439 HPI Details History - The patient is a 49-year-old female pr esenting for a Medicare wellness visit and follow-up for chronic conditions. - Hypothyroidism: Patient has a history of hypothyroidism. The thyroid function test shows normal TSH level, indicating stable thyroid function. - Lipid disorder: Previous labs indicate d an LDL level of 156. Current cholesterol level is mentioned as 129, showing a reduction from past values. - Hypertension: Blood pressure is well c ontrolled with her current medications. - Diabetes: The patient reports diet-con trolled diabetes. Recent A1c level is 6.7, indicating a shift into the diabetic range. Historically, A1c has varied from 6.1 to 6.3. - Right-sided abdominal pain: She occasi onally experiences right-sided pain, possibly related to menstrual period, with no consistent or severe pain reported. Medical History: - Hypothyroidism - Lipid disorder - Hypertension - Diabetes, diet-controlled Social History: - Reports issues with car availability i mpacting health appointments. - Requires some assistance with shopping , meal preparation, and managing money. - Mentions avoidance of junk food as par t of her diet. Problem List - Hypothyroidism - Lipid Disorder - Essential Hypertension - Diabetes Mellitus, diet controlled - psychiatric illness Diagnostic results - Labs: - Electrolytes: Normal - Kidney Function: Normal - A1c: 6.7 - Liver Enzymes: Normal - LDL: 156, Cholesterol: 129 - TSH: Normal Sun'Aq of Care - Psychiatrist Patient Instructions - Schedule mammogram appointment. - Monitor right-sided abdominal pain and seek evaluation if it worsens. - Return in three months for glucose lev el check. - Maintain a diet avoiding junk food to aid in diabetes control. Review of Systems General: No fever no chills neurological: No headaches no dizziness ear nose throat: No sore throat no hearing difficulty no ear pain cardiovascular: No syncope, no chest pain, no palpitations gastrointestinal: No nausea vomiting or diarrhea endocrine: No polyuria polydipsia no heat intolerance genitourinary: No dysuria skin: No new complaints Physical Exam general: No acute distress HEENT: No acute findings neck: Supple respiratory system: Able to talk in full sentences, no audible wheeze no stridor cardiovascular: S1-S2 RRR gastrointestinal: Mild pain on the right side, possibly related to menstrual period, slight tenderness noted upon examination, but no major issues extremities: No new findings CHIEF OF SURGERY: Alert awake oriented x3 motor sensory intact skin: Normal turgor HPI Comments History of Present Illness Details AWV Medical/social history reviewed Past medical history reviewed Sun'Aq of care / care team list updated Surgical/ hospitalization history reviewed Current medications including OTC and supplements reviewed Family history reviewed Tobacco controlled form updated Alcohol use form updated Illicit drug use in social history reviewed Current diagnosis of depression ?screening updated Appropriate PHQ 2/PHQ-9 completed . Vital signs reviewed Alcohol tobacco drug use reviewed and discussed . MMSE completed . ? Fall risk: ?Assessed Fall history: ?None Have you had any falls with injury in the past year?? No Have you had 2 or more falls in the past year?? No Fall risk assessment completed Home safety discussed with the patient Functional ability assessed and discussed and documented Activities of daily living reviewed and appropriate actions taken . HRA filled out by the patient and reviewed by provider and scanned . Appropriate written screening schedule established . Any health advise needed provided . Advance care planning discussed with the patient , necessary paperwork filled Examination IPPE/AWE: Balance intact Romberg intact Tandem walk intact walk-in turn intact rise from sit to stand intact . ?Hearing ?whisper test pass . Medication list reviewed, patient is stable on medications All other providers patient is seeing discussed and noted . [facility] Medical History Tick bite of abdomen Psychiatric illness Uterine fibroid Pre-diabetes BMI 45.0-49.9, adult Thyroid disease Hypertension Lipid disorder Other specified hypothyroidism Surgical History History of section Family History Father Hypertension Mother Diabetes Lung cancer Maternal Grandfather No problems noted. Maternal Grandmother No problems noted. Paternal Grandfather No problems noted. Paternal Grandmother No problems noted. Other Mental health disorder Social History Housing: House Alcohol intake: never Patient Tobacco Use Status: Never used Tobacco e-Cigarette/Vaping Use: Never Used service: No Current occupational status: disabled Sexual orientation: Straight/Heterosexual Gender identity: Female Cognitive needs: No Hearing needs: No Vision needs: Yes Questionnaire Medicare Wellness Checkup What gender do you identify with?: female During the past 4 weeks, how much have you been bothered by emotional problems such as feeling anxious, depressed, irritable, sad or downhearted, and blue?: slightly During the past 4 weeks, has your physical & emotional health limited your social activities with family, friends, neighbors, or groups?: slightly During the past 4 weeks, how much bodily pain have you generally had?: very mild pain During the past 4 weeks, was someone available to help you if you needed & wanted help?: yes, quite a bit During the past 4 weeks, what was the hardest physical activity you could do for at least 2 minutes?: moderate Can you get to places out of walking distance without help? (For eg., can you travel alone on buses, taxis or drive your car?): Yes Can you go shopping for groceries or clothes without someone's help?: Yes Can you prepare your own meals?: Yes Can you do your housework without help?: Yes Because of any health problems, do you need the help of another person with your personal care needs such as eating, bathing, dressing or getting around the house?: No Can you handle your own money without help?: Yes During the past 4 weeks, how would you rate your health in general?: good During the past 4 weeks how have things been going for you?: pretty well Are you having difficulties driving your car?: no Do you always fasten your seat belt when you are in a car?: yes, usually During past 4 weeks, have you been bothered by the following: never: Sexual problems?, Trouble eating well?, Teeth or denture problems? and Problems using the telephone? and seldom: Falling or dizzy when standing up and Tiredness or fatigue? Have you fallen 2 or more times in the past year?: No Are you afraid of falling?: No Are you a smoker?: no During the past 4 weeks, how many drinks of wine, beer, or other alcoholic beverages did you have?: 1 drink or less per week Do you exercise for about 20 minutes 3 or more times a week?: yes, some of the time Have you been given information to help with the following?: no: Hazards in your house that might hurt you? and no: Keeping track of your medications? How often do you have trouble taking medicines the way you have been told to take them?: sometimes I take medicine as prescribed How confident are you that you can control & manage most of your health problems?: somewhat confident What is your race?: White Mini Mental State Exam (MMSE) Orientation What is the (year) (season) (date) (day) (month)?: year, season, date, day and month Where are we (state) (county) (town or city) (hospital) (floor)?: state, county, town or city, hospital/clinic and floor Score Score: 10 Activity of Daily Living Bathing - sponge bath, tub bath or shower: receives no assistance (gets in/out by self, if usual bathing means Dressing - getting clothes from closets & drawers, including inner/outer garments & fasteners.: gets clothes & gets completely dressed without help Toileting - going to the 'toilet room' for urine/bowel elimination & cleaning self/arranging clothes: goes to toilet room, cleans self, arranges clothes without help Transfer: moves in & out of bed and chair without help (may use support object) Continence: controls urination/bowel movements completely by self Feeding: feeds self without help Total Score: 0 Information obtained from: patient Using telephone: independent Traveling: independent Shopping: needs assistance Preparing meals: needs assistance Housework: independent Taking medicine: independent Managing money: needs assistance PHQ-9 Over the last 2 weeks, how often have you been bothered by any of the following problems? 1. Little interest or pleasure in doing things: several days 2. Feeling down, depressed, or hopeless: several days 3. Trouble falling or staying asleep, or sleeping too much: several days 4. Feeling tired or having little energy: several days 5. Poor appetite or overeating: not at all 6. Feeling bad about yourself - or that you are a failure or have let yourself or your family down: not at all 7. Trouble concentrating on things, such as reading the newspaper or watching television: not at all 8. Moving or speaking so slowly that other people could have noticed. Or the opposite - being so fidgety or restless that you have been moving around a lot more than usual: not at all 9. Thoughts that you would be better off or of hurting yourself in some way: not at all Total score: 4 Depression Screening Interpretation: Negative Depression Screening Done: Yes 18606 - PHQ-9 Billing: Yes Source: Developed by Drs. Rahul Tiwari, Oksana Bucio, Miky Winn and colleagues, with an educational hilaria from [employer]. Physical Exam Vital Signs: Last Vital Signs Pulse 71 01/27/25 11:20 BP 130/74 01/27/25 11:20 Pulse Ox 96 01/27/25 11:20 BMI result Body Mass Index 50.3 Assessment & Plan Assessment & Plan (1) Medicare annual wellness visit, subsequent: Code(s): Z00.00 - Encounter for general adult medical examination without abnormal findings (2) Diet-controlled diabetes mellitus: Code(s): E11.9 - Type 2 diabetes mellitus without complications (3) Hypertension, essential: Code(s): I10 - Essential (primary) hypertension (4) Lipid disorder: Code(s): E78.9 - Disorder of lipoprotein metabolism, unspecified (5) Other specified hypothyroidism: Code(s): E03.8 - Other specified hypothyroidism (6) Morbid obesity: Code(s): E66.01 - Morbid (severe) obesity due to excess calories Plan History - The patient is a 49-year-old female presenting for a Medicare wellness visit and follow-up for chronic conditions. - Hypothyroidism: Patient has a history of hypothyroidism. The thyroid function test shows normal TSH level, indicating stable thyroid function. - Lipid disorder: Previous labs indicated an LDL level of 156. Current cholesterol level is mentioned as 129, showing a reduction from past values. - Hypertension: Blood pressure is well controlled with her current medications. - Diabetes: The patient reports diet-controlled diabetes. Recent A1c level is 6.7, indicating a shift into the diabetic range. Historically, A1c has varied from 6.1 to 6.3. - Right-sided abdominal pain: She occasionally experiences right-sided pain, possibly related to menstrual period, with no consistent or severe pain reported. Medical History: - Hypothyroidism - Lipid disorder - Hypertension - Diabetes, diet-controlled Social History: - Reports issues with car availability impacting health appointments. - Requires some assistance with shopping, meal preparation, and managing money. - Mentions avoidance of junk food as part of her diet. Problem List - Hypothyroidism - Lipid Disorder - Essential Hypertension - Diabetes Mellitus, diet controlled - psychiatric illness Diagnostic results - Labs: - Electrolytes: Normal - Kidney Function: Normal - A1c: 6.7 - Liver Enzymes: Normal - LDL: 156, Cholesterol: 129 - TSH: Normal Sun'Aq of Care - Psychiatrist Patient Instructions - Schedule mammogram appointment. - Monitor right-sided abdominal pain and seek evaluation if it worsens. - Return in three months for glucose level check. - Maintain a diet avoiding junk food to aid in diabetes control. Quality Reporting (2020) Depression/Bipolar (159/160/161/177) PHQ-9: Total score: 4 Coding Level of Care Code Medicare Subsequent (G0439) Est Pt Level 4 (48967) Diagnoses Medicare annual wellness visit, subsequent Z00.00 Diet-controlled diabetes mellitus E11.9 Hypertension, essential I10 Lipid disorder E78.9 Other specified hypothyroidism E03.8 Morbid obesity E66.01 CPT Codes Advance Care Planning - Advance Care Planning discussion: On file, no changes ([id number]) Advance Care Planning - Time spent: 1-15 minutes, on File ([id number]) Additional Codes PHQ-9 - 21757 - PHQ-9 Billing: Yes ([id number]) Advance Care Planning Advance Care Planning discussion: On file, no changes Forms completed: MOLST Time spent: 1-15 minutes, on File
[2025-01-27 11:20] VITALS: BP 130/74; PULSE 71; O2SAT 96; BMI 50.3
--- OUTSIDE RECORDS SUMMARY | 2025-01-27 11:42 | XMS_ITS | Clinical Summary ---
Author Organization [facility] Address [address] [place] [address] Care Team Providers Care Photo Mask Cleaner Name Role Phone Unavailable Primary Care Provider [...] (2023-2 5 season) 2024 Pneumococcal Vaccine: Pediat lachlele (0-5 Years) and At-Risk Patients (6 to 49 Years) Aged Out No longer eligible b ased on patient's age to complete this topic
== END 2025-01-27 11:41 | disposition home or self-care (01) ==
LOC: HO.HMCC 11:11
PROVIDERS: PCP Internal Medicine; Visit Provider Internal Medicine
DX: Z00.00 Encounter for general adult medical examination without abnormal findings (principal); E11.9 Type 2 diabetes mellitus without complications; E66.01 Morbid (severe) obesity due to excess calories; I10 Essential (primary) hypertension; E78.9 Disorder of lipoprotein metabolism, unspecified; E03.8 Other specified hypothyroidism

== ENCOUNTER → 2025-01-27 11:10 | Outpatient (BNVA) | payer MEDICARE, MEDICAID, SELFPAY | PROVIDERS: PCP Internal Medicine; Visit Provider Internal Medicine | DX: Z00.00 Encounter for general adult medical examination without abnormal findings (principal); E11.9 Type 2 diabetes mellitus without complications; E78.9 Disorder of lipoprotein metabolism, unspecified; E03.8 Other specified hypothyroidism; I10 Essential (primary) hypertension; E66.01 Morbid (severe) obesity due to excess calories; Z68.43 Body mass index [BMI] 50.0-59.9, adult; Z71.3 Dietary counseling and surveillance | CPT/HCPCS: 96127 ==

== ENCOUNTER 2025-04-28 10:53 | Outpatient (AMB) | payer MEDICARE, MEDICAID, SELFPAY ==
--- NOTE | 2025-04-28 10:59 | A.OFFPC_ITS ---
Vital Signs 04/28/25 11:03 Height 5 ft 1 in Weight 258 lb BMI 48.7 BP 128/78 Blood Pressure Location Lt brachial Position Sitting Pulse 72 Pulse Source Pulse Oximeter Pulse Oximetry (%) 95 Intake Visit Reasons: 3 month follow up Allergies No Known Allergies (No Known Allergies*) Allergy (Verified 04/28/25 11:03) Medication List - Last Reconciled 04/28/25 by Skye Medellin MD aripiprazole 20 mg PO BEDTIME atenolol 50 mg PO DAILY 90 days cholecalciferol (vitamin D3) 25 mcg PO DAILY 90 days divalproex ER 1,500 mg PO BEDTIME levothyroxine 125 mcg PO DAILY 90 days lorazepam 1 mg PO BID PRN simvastatin 80 mg PO DAILY Tobacco use date assessed: 09/06/24 Dental Screening Dental Screen Date: 09/06/24 HPI 3 month follow up HPI Details History of Present Illness The patient is a 49-year-old female presenting with a regular follow-up for diabetes management and arthritis symptoms. Diabetes: - Diet control, Hba1c is 6.2 today shoulder discomfort left: - Present for approximately three to fou r weeks. - Difficulty lifting and pulling back, m ostly when engaged in activities such as cleaning and lifting at camp. - Right dominant hand affected. - Symptoms seem to be improving. Medical History: - Diabetes - Essential hypertension - Hypothyroidism - psychiatric illness Social History: - Currently not employed. - Engaged in physical activities like cl eaning and lifting at home. . Problem List - Diabetes - Essential Hypertension - Hyperlipidemia - Hypothyroidism - shoulder symptoms left improving Plan - Arrange for a fingerstick glucose test today to monitor blood sugar levels. - Continue current diabetes management r egimen with dietary modifications. - for left shoulder discomfort advised o [id number]-gbu-[id number] anti-inflammatory medications such as Aleve or Ibuprofen with food for symptom relief, not prescribed. - Continue current management with Ateno lol for blood pressure. - Maintain Simvastatin for lipid control , despite previously noted elevated cholesterol levels. - Encourage consistent Vitamin D supplem entation. - Obtain a blood test in 3 months, prefe rably fasting despite instructions not requiring such, to assess health markers including diabetes management and cholesterol levels. - Flu vaccine recommended and administer ed today. Follow-up 3 months Review of Systems - General: No fever no chills - Neurological: No headaches no dizziness - Ear nose throat: No sore throat no hearing difficulty no ear pain - Cardiovascular: No syncope, no chest pain, no palpitations - Gastrointestinal: No nausea vomiting or diarrhea - Endocrine: No polyuria polydipsia no heat intolerance - Genitourinary: No dysuria , no blood in urine Physical Exam General: No acute distress HEENT: No acute findings Neck: Supple Respiratory system: Able to talk in full sentences, no audible wheeze Cardiovascular: S1-S2 regular in rate and rhythm, blood pressure 128/78 Gastrointestinal: No pain Extremities: Both shoulders with full range of motion, left shoulder with soreness when lifting above the head around rotator cuff SHIP'S CAPTAIN: Alert awake oriented x3 motor intact Skin: Normal turgor [facility], [facility] Medical History Tick bite of abdomen Psychiatric illness Uterine fibroid Pre-diabetes BMI 45.0-49.9, adult Thyroid disease Hypertension Lipid disorder Other specified hypothyroidism Surgical History History of section Family History Father Hypertension Mother Diabetes Lung cancer Maternal Grandfather No problems noted. Maternal Grandmother No problems noted. Paternal Grandfather No problems noted. Paternal Grandmother No problems noted. Other Mental health disorder Social History Housing: House Alcohol intake: never Patient Tobacco Use Status: Never used Tobacco e-Cigarette/Vaping Use: Never Used service: No Current occupational status: disabled Sexual orientation: Straight/Heterosexual Gender identity: Female Cognitive needs: No Hearing needs: No Vision needs: Yes Questionnaire Thrive Questionnaire Date Thrive assessed: 09/06/24 I am a: Patient What is your living situation today?: I have a steady place to live Within the past 12 months, did the food you bought not last and you didn't have the money to get more?: Never true Within the past 12 months, did you worry whether your food would run out before you got money to buy more?: Never true Do you have trouble paying for medicines?: No Do you have trouble getting transportation to medical appointments?: No Do you have trouble paying your heating and electricity bill?: No Do you have trouble taking care of your child, family member or friend?: No Do you have trouble with day-to-day activities such as bathing, preparing meals, shopping, managing finances, etc.?: No Are you currently unemployed and looking for a job?: I choose not to answer this question Are you interested in more education?: No Please select the resources that you would like help with: None Currently or been in a relationship where the following occur: No concerns reported THRIVE Score: 0 CAITLIN-7 AMB Questionnaire CAITLIN-7 Date CAITLIN - 7 assessed: 09/06/24 Source: Developed by Drs. Rahul Tiwari, Oksana Bucio, Miky Winn and colleagues, with an educational hilaria from [employer]. Physical exam (Primary Care) Vital Signs: Last Vital Signs Pulse 72 04/28/25 11:03 BP 128/78 04/28/25 11:03 Pulse Ox 95 04/28/25 11:03 BMI result Body Mass Index 48.7 Tobacco/Smoking Status: Tobacco use Status Tobacco use date assessed 09/06/24 04/28/25 10:59 Patient Tobacco Use Status Never used Tobacco 04/28/25 10:59 e-Cigarette/Vaping Use Never Used 04/28/25 10:59 Thrive Assessment: Date of Thrive Assessment Date Thrive assessed 09/06/24 04/28/25 10:59 Currently or been in a relationship where the following occur: No concerns reported Coding Level of Care Code Est Pt Level 4 (82587) Complex EM visit Add On G2211 Diagnoses Diet-controlled diabetes mellitus E11.9 Hypertension, essential I10 Other specified hypothyroidism E03.8 Lipid disorder E78.9 Chronic left shoulder pain M25.512; G89.29 Chronicity: chronic Assessment & Plan Assessment & Plan (1) Diet-controlled diabetes mellitus: Code(s): E11.9 - Type 2 diabetes mellitus without complications Category: Medical (2) Hypertension, essential: Code(s): I10 - Essential (primary) hypertension Category: Medical (3) Other specified hypothyroidism: Code(s): E03.8 - Other specified hypothyroidism Category: Medical (4) Lipid disorder: Code(s): E78.9 - Disorder of lipoprotein metabolism, unspecified Category: Medical (5) Shoulder pain, left: Code(s): M25.512 - Pain in left shoulder Category: Medical Qualifiers: Chronicity: chronic Qualified Code(s): M25.512 - Pain in left shoulder; G89.29 - Other chronic pain Plan Diabetes: - Diet control, Hba1c is 6.2 today shoulder discomfort left: - Present for approximately three to four weeks. - Difficulty lifting and pulling back, mostly when engaged in activities such as cleaning and lifting at camp. - Right dominant hand affected. - Symptoms seem to be improving. Medical History: - Diabetes - Essential hypertension - Hypothyroidism - psychiatric illness Social History: - Currently not employed. - Engaged in physical activities like cleaning and lifting at home. . Problem List - Diabetes - Essential Hypertension - Hyperlipidemia - Hypothyroidism - shoulder symptoms left improving Plan - Arrange for a fingerstick glucose test today to monitor blood sugar levels. - Continue current diabetes management regimen with dietary modifications. - for left shoulder discomfort advised igij-qdt-ktjxnyj anti-inflammatory medications such as Aleve or Ibuprofen with food for symptom relief, not prescribed. - Continue current management with Atenolol for blood pressure. - Maintain Simvastatin for lipid control, despite previously noted elevated cholesterol levels. - Encourage consistent Vitamin D supplementation. - Obtain a blood test in 3 months, preferably fasting despite instructions not requiring such, to assess health markers including diabetes management and cholesterol levels. - Flu vaccine recommended and administered today. Follow-up 3 months Orders: Orders 2 [facility] [place]. Panel Fast Today E03.8 - Other specified hypothyroidism, E11.9 - Type 2 diabetes mellitus without complications, E78.9 - Disorder of lipoprotein metabolism, unspecified, I10 - Essential (primary) hypertension Lipid Panel Today E03.8 - Other specified hypothyroidism, E11.9 - Type 2 diabetes mellitus without complications, E78.9 - Disorder of lipoprotein metabolism, unspecified, I10 - Essential (primary) hypertension Hemoglobin A1c Today E03.8 - Other specified hypothyroidism, E11.9 - Type 2 natasha betes mellitus without complications, E78.9 - Disorder of lipoprotein metabolism, unspecified, I10 - Essential (primary) hypertension Complete Blood Count Auto Diff Today E03.8 - Other specified hypothyroidism, E11.9 - Type 2 diabetes mellitus without complications, E78.9 - Disorder of lipoprotein metabolism, unspecified, I10 - Essential (primary) hypertension TSH reflex Free T4 Today E03.8 - Other specified hypothyroidism, E11.9 - Type 2 diabetes mellitus without complications, E78.9 - Disorder of lipoprotein metabolism, unspecified, I10 - Essential (primary) hypertension Microalbumin, Random (w Creat) Today E03.8 - Other specified hypothyroidism, E11.9 - Type 2 diabetes mellitus without complications, E78.9 - Disorder of lipoprotein metabolism, unspecified, I10 - Essential (primary) hypertension
[2025-04-28 11:03] VITALS: BP 128/78; PULSE 72; O2SAT 95; BMI 48.7
--- OUTSIDE RECORDS SUMMARY | 2025-04-28 13:30 | XMS_ITS | Clinical Summary ---
Author Organization [facility] Address [address] [place] [address] Care Team Providers Care Security Assessor Name Role Phone Unavailable Primary Care Provider [...] - 19+ 3-dose series) 1994 COVID-19 Vaccine ( - 2023-2 5 season) 2025 Pneumococcal Vaccine: Pediat lachelle (0-5 Years) and At-Risk Patients (6 to 49 Years) Aged Out No longer eligible b ased on patient's age to complete this topic
== END 2025-04-28 11:31 | disposition home or self-care (01) ==
LOC: HO.HMCC 10:54
PROVIDERS: PCP Internal Medicine; Visit Provider Internal Medicine
DX: E11.9 Type 2 diabetes mellitus without complications (principal); I10 Essential (primary) hypertension; E03.8 Other specified hypothyroidism; E78.9 Disorder of lipoprotein metabolism, unspecified; M25.512 Pain in left shoulder; G89.29 Other chronic pain; Z23 Encounter for immunization

== ENCOUNTER → 2025-04-28 10:53 | Outpatient (BNVA) | payer MEDICARE, MEDICAID, SELFPAY | PROVIDERS: PCP Internal Medicine; Visit Provider Internal Medicine | DX: E11.9 Type 2 diabetes mellitus without complications (principal); M25.512 Pain in left shoulder; G89.29 Other chronic pain; I10 Essential (primary) hypertension; E03.8 Other specified hypothyroidism; Z23 Encounter for immunization | CPT/HCPCS: 90471; 90656; 99212 ==

== ENCOUNTER 2025-06-28 12:08 | Outpatient (AMB) | payer MEDICARE, MEDICAID, SELFPAY ==
[2025-06-28 12:23] VITALS: BP 146/84; PULSE 75; TEMP 36.9; O2SAT 98; BMI 48.9
--- NOTE | 2025-06-28 12:23 | AM.OFFWIN_ITS ---
Intake Vital Signs 06/28/25 12:23 Height 5 ft 1 in Weight 259 lb BMI 48.9 BP 146/84 H Blood Pressure Location Lt brachial Position Sitting Pulse 75 Pulse Source Pulse Oximeter Temp 98.5 F Temp Source Oral Pulse Oximetry (%) 98 Oxygen Delivery Method Room Air Intake Visit Reasons: EP Rash on chest, itchiness Intake Note: Patient presents c/o itchy, red rash on chest x1 week Patient Tobacco Use Status: Never used Tobacco Allergies No Known Allergies (No Known Allergies*) Allergy (Verified 06/28/25 12:26) Do you need a note to return to daycare/school/sports/work: No HPI HPI Comments History of Present Illness Details History - The patient is a 49-year-old female pr esenting with an itchy rash that has been present for over a week. - She reports the rash began as blisters and was associated with a mild burning and tingling sensation at onset. - She denies any pain, numbness, or stin ging sensation. - The primary symptom is intense pruritu s, which is severe enough to cause difficulty sleeping at night. - The patient has tried an ghdy-zgo-epeu ter anti-itch cream on the area. - She denies any associated fevers, chil ls, or chest pain preceding the rash. - Her past medical history includes pred iabetes, with recent lab results showing some improvement. - She has a history of chickenpox but de nies any prior history of shingles. - The patient denies any personal histor y of cancer or being on medications that lower her immune system, though her mother had lung cancer. Physical Exam General: Cooperative, healthy appearing, comfortable, no acute distress and well developed Orientation: Patient oriented x3 Limitations: No limitations Mouth: normal, moist oral mucosa Neck: Normal visual inspection and Yes full ROM Respiratory: Normal respiratory effort and able to speak in complete sentences. Clear to auscultation bilaterally. No w/r/r noted. Cardiovascular: RRR, no m/r/g noted. Normal S1 and S2 Skin: Erythematous, rough, non-tender, blanchable, dry, flat patch noted on the anterior chest medially about the breast. No discharge noted. No fluctuance noted. No bleeding noted. Patient was informed and verbally consented to the use of an ambient scribe for clinic note documentation during this visit [facility] Medical History Tick bite of abdomen Psychiatric illness Uterine fibroid Pre-diabetes BMI 45.0-49.9, adult Thyroid disease Hypertension Lipid disorder Other specified hypothyroidism Surgical History History of section Family History Father Hypertension Mother Diabetes Lung cancer Maternal Grandfather No problems noted. Maternal Grandmother No problems noted. Paternal Grandfather No problems noted. Paternal Grandmother No problems noted. Other Mental health disorder Social History Housing: House Alcohol intake: never Patient Tobacco Use Status: Never used Tobacco e-Cigarette/Vaping Use: Never Used service: No Current occupational status: disabled Sexual orientation: Straight/Heterosexual Gender identity: Female Cognitive needs: No Hearing needs: No Vision needs: Yes Review of Systems Const All systems reviewed & are unremarkable except as noted in HPI and below Physical Exam Vital Signs: Last Vital Signs Temp 98.5 F 06/28/25 12:23 Pulse 75 06/28/25 12:23 BP 146/84 H 06/28/25 12:23 Pulse Ox 98 06/28/25 12:23 Oxygen Delivery Method Room Air 06/28/25 12:23 BMI result Body Mass Index 48.9 Assessment & Plan Assessment & Plan (1) Rash: Code(s): R21 - Rash and other nonspecific skin eruption Plan Most likely fungal vs allergic reaction vs shingles Plan - While shingles was considered, the clinical impression is that the rash is more likely fungal with excoriations - Prescribed clotrimazole antifungal cream to be applied to the affected area two to three times daily. - For pruritus, prescribed a course of oral prednisone and Pepcid, to be taken once daily for five to seven days. - Prescriptions will be sent to the patient's [facility] pharmacy. - Advised to follow up with a tile setter supervisor if the rash does not resolve. - Instructed the patient to return if the condition worsens or if she develops new symptoms such as fevers, chills, or joint pain. Medications: New clotrimazole 1% 1 appl topical bid 45 grams 1RF 4 weeks prednisone 40 mg (2 x 20 mg) PO DAILY 10 tabs 0RF 5 days famotidine (Pepcid) 20 mg PO BID 14 tabs 0RF 7 days Coding Level of Care Code Est Pt Level 3 (91042) Diagnoses Rash R21
--- OUTSIDE RECORDS SUMMARY | 2025-06-28 15:58 | XMS_ITS | Clinical Summary ---
Author Organization [facility] Address [address] [place] [address] Care Team Providers Care Electron Microscopist Name Role Phone Unavailable Primary Care Provider [...] - 19+ 3-dose series) 1994 COVID-19 Vaccine (2024-2 6 season) 2025 Pneumococcal Vaccine: Pediat lachelle (0-5 Years) and At-Risk Patients (6 to 49 Years) Aged Out No longer eligible b ased on patient's age to complete this topic
== END 2025-06-28 13:37 | disposition home or self-care (01) ==
PROVIDERS: PCP Internal Medicine; Visit Provider Physician Assistant Medical
DX: R21 Rash and other nonspecific skin eruption (principal)

== ENCOUNTER → 2025-06-28 12:08 | Outpatient (BNVA) | payer MEDICARE, MEDICAID, SELFPAY | PROVIDERS: PCP Internal Medicine; Visit Provider Physician Assistant Medical | DX: R21 Rash and other nonspecific skin eruption (principal) | CPT/HCPCS: 99212 ==